=== PATIENT | male | born 1960 | race African-American/Black ===

== ENCOUNTER 2017-12-01 00:54 | Emergency (ER) | payer OTHER, SELFPAY ==
[2017-12-01 00:56] VITALS: BP 131/80; PULSE 110; RESP 14; TEMP 36.7; O2SAT 98; BMI 25.0
--- NOTE | 2017-12-01 02:12 | ED.VISSUMM ---
- ER Visit Summary Date of Service: 12/01/17 Chief Complaint: [Back pain] History of Present Illness: The patient is a 57 M [who presents the emergency department with back pain. It started last evening about 8:00 when he was lifting a water tank. It is across his lower back. It feels like spasm. It is worse with walking and extending as well as bending over. There is no radiation to the buttocks no numbness or tingling no saddle anesthesia no bowel or bladder dysfunction. He has never had problems with his back in the past.] Physical Examination: [] Heart rate 110 other vitals within acceptable limits WN WD NAD PERRL EOMI MMM NECK supple and nontender, no masses RRR no murmur rub or gallop, no peripheral edema, symmetric radial pulses CTAB no respiratory distress ABDOMEN is soft and nontender, normal bowel sounds, no distension, no rebound or guarding Patient has tenderness to palpation in lumbar paraspinal musculature. There is 5 out of 5 EHL dorsiflexion plantar flexion knee extension and hip flexion there is no lower extremity edema. He has brisk distal cap refill there is no sensory or motor deficits SKIN is warm and dry no rashes Alert and Oriented x3, CN II-XII in tact, no motor or sensory deficits, gait normal No lymphadenopathy Test Results: [] Emergency Department Course and Treatment: [Patient will be treated symptomatically. He was given [place] ibuprofen and Flexeril. He will be given prescriptions for the same. He was given precautions for which to return.] Treatment Plan: [] Disposition: [Discharge] Impression: [Acute lumbar back strain] This note was generated with [employer] dictation software. It may contain incorrect words, spelling, and punctuation that were not noted in review of the chart prior to signing ED Disposition - Plan for ED Patient: Chief Complaint: Back [facility] [Primary [facility] Provider] -
--- NOTE | 2017-12-01 02:15 | ED.DCSUM_ITS ---
- ER Visit Summary Date of Service: 12/01/17 Chief Complaint: [Back pain] History of Present Illness: The patient is a 57 M [who presents the emergency department with back pain. It started last evening about 8:00 when he was lifting a water tank. It is across his lower back. It feels like spasm. It is worse with walking and extending as well as bending over. There is no radiation to the buttocks no numbness or tingling no saddle anesthesia no bowel or bladder dysfunction. He has never had problems with his back in the past.] Physical Examination: [] Heart rate 110 other vitals within acceptable limits WN WD NAD PERRL EOMI MMM NECK supple and nontender, no masses RRR no murmur rub or gallop, no peripheral edema, symmetric radial pulses CTAB no respiratory distress ABDOMEN is soft and nontender, normal bowel sounds, no distension, no rebound or guarding Patient has tenderness to palpation in lumbar paraspinal musculature. There is 5 out of 5 EHL dorsiflexion plantar flexion knee extension and hip flexion there is no lower extremity edema. He has brisk distal cap refill there is no sensory or motor deficits SKIN is warm and dry no rashes Alert and Oriented x3, CN II-XII in tact, no motor or sensory deficits, gait normal No lymphadenopathy Test Results: [] Emergency Department Course and Treatment: [Patient will be treated symptomatically. He was given [place] ibuprofen and Flexeril. He will be given prescriptions for the same. He was given precautions for which to return.] Treatment Plan: [] Disposition: [Discharge] Impression: [Acute lumbar back strain] This note was generated with [employer] dictation software. It may contain incorrect words, spelling, and punctuation that were not noted in review of the chart prior to signing ED Disposition - Plan for ED Patient: Chief Complaint: Back [facility] [Primary [facility] Provider] -
--- NOTE | 2017-12-01 02:15 | ED.DEP ---
ED Disposition - Plan for ED Patient: Chief Complaint: Back Instructions: ED Sprain Strain Lumbar Prescriptions: Ibuprofen 800 mg PO Q8H PRN PRN #20 tablet PRN Reason: Pain Cyclobenzaprine [Flexeril] 10 mg PO TID PRN #14 tablet PRN Reason: Muscle Spasm [facility] [Primary [facility]] - 3-5 Days if not improving
[2017-12-01] MEDS: Ibuprofen 400 MG Tablet 800 MG PO (02:19)
[2017-12-01] MEDS: HYDROcodone Bitartrate/Apap 5/325 Tablet PO ×2 (02:20→02:27)
[2017-12-01 02:28] VITALS: BP 126/81; PULSE 79; RESP 14; O2SAT 98
== END 2017-12-01 02:30 | disposition home or self-care (01) ==
LOC: ED 02:07
PROVIDERS: Emergency Provider Emergency Medicine
DX: S39.012A Strain of muscle, fascia and tendon of lower back, initial encounter (principal); X50.0XXA Overexertion from strenuous movement or load, initial encounter; Y93.9 Activity, unspecified; Y92.9 Unspecified place or not applicable; Y99.9 Unspecified external cause status; Z72.0 Tobacco use; Z79.82 Long term (current) use of aspirin; Z79.899 Other long term (current) drug therapy
CPT/HCPCS: 99283

== ENCOUNTER 2021-07-31 22:33 | Emergency (ER) | payer OTHER, SELFPAY ==
[2021-07-31 22:35] VITALS: BP 144/98; PULSE 103; RESP 16; TEMP 37; O2SAT 99; BMI 23.1
--- NOTE | 2021-07-31 22:35 | ED.RN ---
Pt brought in by EMS, EMS staff had patient walk to the ED bed from their cot at the doorway. Pt took a few steps then fell face first to the floor, patient caught himself with his hands. Pt did not hit face or head. Pt denies injury. Pt denies falling a few minutes later.
--- NOTE | 2021-07-31 22:53 | EKG12_ITS ---
Test Reason : CP Blood Pressure : / mmHG Vent. Rate : 094 BPM Atrial Rate : 094 BPM P-R Int : 142 ms QRS Dur : 130 ms QT Int : 388 ms P-R-T Axes : 073 054 035 degrees QTc Int : 485 ms Normal sinus rhythm Right bundle branch block Abnormal ECG Confirmed by SAL ARCOS, KALINA ([id number]), purchase request editor NOÉ LEZAMA ([id number]) on 08/05/2021 11:18:05 AM Referred By: NIKKI Confirmed By:KALINA HUANG MD
--- NOTE | 2021-07-31 22:54 | EDS_ITS ---
HPI History of Present Illness Chief Complaint: Chest Pain Informant: patient Onset/Context/Timing Onset: Month(s) Timing: Intermittent Quality: Positive for Aching Location: Substernal, Right Parasternal, Left Parasternal, Right Chest and Left Chest Current Severity: Mild Maximum Severity: Mild Worsened By: Nothing Relieved By: Nothing Associated Symptoms: Positive for Palpitations; Negative for Nausea, Vomiting, Diaphoresis, Dyspnea, Cough, Fever, Lightheadedness and Acid Reflux Narrative Narrative: 61-year-old male who clinically appears intoxicated. Reportedly has had chest pain for months. Had a recent stress test at the [facility], [facility], but has not gotten his test results yet. Use visit get those tomorrow. Denies that he was having anxiety attack. Started having chest pain. Called the squad and did not want to come in. Prior Similar Symptoms: Yes Recent Illness/Hospitalization: No CVD Risk Factors: Positive for Smoking; Negative for Diabetes PE Risk Factors: Negative for Recent Travel/Surgery, Recent Immobilization, Prior DVT or PE and Cancer TAD Risk Factors: Positive for Marfan's Syndrome; Negative for Hypertension [facility] Medical History Angina at rest Anxiety Back pain Chest pain Depression Hearing loss, left History of intestinal obstruction (~1967) Hypothyroidism Migraine headache Myocardial infarct Palpitations Shortness of breath on exertion Smoker Wears glasses Home Medications aspirin 81 mg PO DAILY 12/01/17 [History Last Taken Unknown] ibuprofen 800 mg PO Q8H PRN PRN #20 tablet 12/01/17 [Rx Last Taken Unknown] levothyroxine 100 mcg PO DAILY 12/01/17 [History Last Taken Unknown] Allergy/AdvReac Type Severity Reaction Status Date / Time No Known Allergies Allergy Verified 07/31/21 23:43 Family History Father No problems noted. Surgical History History of abdominal surgery Hx of resection of small bowel (~1967) Social History Smoking Status: Current every day smoker tobacco type: cigarettes ROS ROS ED ROS Narrative Chest pain. Review of Systems ROS Unobtainable: Denies due to encephalopathy Constitutional Constitutional ED: Denies fever(s) Eyes Eyes: Denies none or change in vision ENT ENT ED: Denies ear pain Cardiovascular Cardiovascular: Reports as per HPI and chest pain; Denies palpitations or racing heartbeat Respiratory/Chest Respiratory/Chest: Denies cough or dyspnea Gastrointestinal Gastrointestinal: Denies abdominal pain, constipation, diarrhea, nausea or vomiting Genitourinary Genitourinary ED: Denies dysuria or hematuria Musculoskeletal Musculoskeletal: Denies myalgias Integumentary Denies rash Neurologic Neurologic: Denies headache(s) Psychiatric Psychiatric: Denies depression Endocrine Endocrinology: Denies polyuria Hematologic/Lymphatic Hematologic/Lymphatic: Denies easy bruising Allergic/Immunologic Allergic/Immunologic ED: Denies urticaria EXAM Physical Exam Narrative Exam Narrative: 61-year-old male no acute distress. He is anxious. At times is tearful. At times he is uncooperative. Vital signs are stable. He is afebrile. His pulse ox is 99% on room air no hypoxia. H EENT exam unremarkable. Neck nontender. No JVD. Lungs clear to auscultation bilaterally. Heart regular rhythm rate about 103. No murmur. Chest wall nontender. Abdomen soft nontender normal bowel sounds no peritoneal signs. Patient moving all 4 extremities. Equal symmetrical radial pulses. 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 Dorsi plantarflexion intact. Calves are nontender without edema or cords. Neurologically is awake. He is alert. He does seem intoxicated. He is moving all 4 extremities. He gets up out of bed and can walk. Const Vital Signs: 07/31/21 22:35 07/31/21 23:42 08/01/21 00:13 Temperature 98.6 F Temperature Source Temporal Pulse Rate 103 H 97 75 Respiratory Rate 16 16 16 Blood Pressure 144/98 H 87/64 L Blood Pressure Mean 113 71 Pulse Ox 99 98 98 Oxygen Delivery Method Room Air Room Air Room Air Positive well nourished and well developed; Negative for obese, cachectic, contractures or unkempt General Appearance ED: well developed and NAD; Negative for unkempt, cachectic, contractures or pallor Nutritional Appearance: Negative for cachectic or obese HEENT Reports moist mucous membranes normocephalic and atraumatic; Negative for trauma or tenderness Eyes PERRL and EOMs intact bilaterally Neck no lymphadenopathy, supple and no JVD General: Negative for tenderness Chest Wall inspection of chest normal and palpation of chest normal Chest: Negative for tenderness Resp normal respiratory effort and clear to auscultation bilaterally Effort and Inspection: respiratory distress Auscultation: Negative for rales, rhonchi or wheezes Cardio regular rate, regular rhythm, S1 normal heart sound, S2 normal heart sound and no murmurs Rate: Negative for bradycardia or tachycardic GI normal to inspection, nondistended, normoactive bowel sounds, soft to palpation, non-tender, non-distended and no masses; Negative for hepatosplenomegaly Auscultation: Negative for hyperactive bowel sounds Palpation: Negative for splenomegaly Back/Spine no CVA tenderness and no thoracic nor lumbar tenderness General Back: Negative for CVA tenderness Cervical Spine: Negative for cervical spine tenderness Extremity normal to inspection General Extremety ED: Negative for edema or tenderness General Extremity: Negative for edema Neuro Sensorium / Orientation: awake, alert, oriented to person, oriented to place and oriented to time Motor Exam: strength 5/5 throughout Psych mental status grossly normal Appearance: Negative for unkempt Attitude: No agitated Mood & Affect: depressed, anxious and tearful Skin no rashes or lesions noted and no wounds General Skin Exam: Negative for jaundice or pallor Heart Score History: Slightly/Non-Suspicious ECG: Normal Age: >45 - <65 years Risk Factors: 1 or 2 Risk Factors Troponin: </= Normal Limit Score: 2 MDM MDM MDM Narrative Medical decision making narrative: 61-year-old male intoxicated. Complaining of chest pain. Exam benign. Undergo cardiac work-up. Of already spoken with his sister via phone. He also be given Ativan to help relax him. Repeat exam patient is doing well at 2 AM. He is resting comfortably. He was given Ativan because he kept trying to leave the emergency department at times he was combative. He will be evaluated overnight. If he is doing well in the morning he will be discharged home. Transiently became hypotensive with a blood pressure 87/64. He was tolerating that well. He was treated with IV fluids for that. Lab Data Attestation: I reviewed the patient's lab results. Lab results narrative: CBC shows a white count of 5. H&H of 15 and 43. Electrolytes show a gap of 7 BUN of 13 creatinine 1.62. Troponin of 6. Lipase of 230. Chest x-ray unremarkable. Alcohol is elevated 204 consistent with his acute intoxication. Labs: Laboratory Results - last 24 hr 07/31/21 07/31/21 07/31/21 23:30 23:30 23:30 WBC 5.3 RBC 4.46 L Hgb 15.5 Hct 43.5 MCV 97.5 H MCH 34.8 H MCHC 35.6 RDW Std Deviation 50.4 H RDW Coeff of Son 13.8 Plt Count 294 MPV 9.0 Immature Gran % (Auto) 0.400 Neut % (Auto) 28.8 L Lymph % (Auto) 34.0 [place] % (Auto) 5.9 Eos % (Auto) 29.8 H Baso % (Auto) 1.1 H Absolute Neuts (auto) 1.5 L Absolute Lymphs (auto) 1.79 Nucleated RBC % 0 Sodium 142 Potassium 3.5 Chloride 111 H Carbon Dioxide 24.0 Anion Gap 7 BUN 13 Creatinine 1.62 H Estim Creat Clear Calc 46.33 Est GFR (MDRD) Af Amer 56 L Est GFR (MDRD) Non-Af 46 L BUN/Creatinine Ratio 8.0 L Glucose 76 Calcium 9.0 Troponin I High Sens 6 Lipase 230 Ethyl Alcohol 204.0 Radiography Chest X-Ray - ED: 1 View, Read by ED Physician, Read by Radiologist, Heart, Lungs, Mediastinum, Bony Structures, No Acute Disease and Chronic Changes Diagnostic Testing: Clinical Impression(s) from Imaging Studies Chest X-Ray 07/31/21 23:57 IMPRESSION: Negative x-ray examination of the chest. Electronically Signed: Adria Jovel MD at 0:09 EST , Single view, portable, chest x-ray interpreted myself radiologist shows no acute abnormality. Rhythm Strip Rhythm Strip: Sinus Rhythm Rate: 94 Ectopy: None EKG Initial EKG: Attestation: I personally reviewed and interpreted this EKG as follows: Interpretation: Sinus Rhythm and No Acute Injury Pattern Comments: Normal sinus rhythm rate of 94 no acute signs of [place] nor ischemia. Right bundle branch block. Prior EKG tracings: not available for review Discharge Plan Triage Chief Complaint: Chest Pain ED Provider: Bradford Beltran Dx/Rx/DC Orders Clinical Impression: Chest pain, Anxiety, Alcohol intoxication Instructions: ED Anxiety Reaction, ED Chest Pain, Uncertain Cause, ED Alcohol Intoxication Prescriptions: No Action levothyroxine 100 MCG tablet 100 mcg PO DAILY RF: 0 aspirin 81 MG tablet,chewable 81 mg PO DAILY RF: 0 ibuprofen 800 MG tablet 800 mg PO Q8H PRN PRN (Reason: Pain) Qty: 20 RF: 0 [facility] [facility] [Primary Care [place]] - As soon as possible Activity Restrictions/Additional Instructions: Your lab test tonight were unremarkable. Except for your alcohol level was 204 which is about 2-1/2 times the legal limit. Your cardiac work-up was good. No signs of a heart attack. Call and follow-up with the [place]. Return to the emergency department if you are feeling worse. Continue your current medications. Disposition Disposition: Home, Self Care
[2021-07-31] MEDS: LORazepam 2 MG/ML Syringe 1 MG IV (23:35)
--- NOTE | 2021-07-31 23:35 | ED.RN ---
Addendum entered by Alia Stanton 07/31/21 23:43: ADDENDUM: 1MG OUT OF 2 MG SYRINGE GIVEN. Original Note: THIS RN GAVE 2MG IV ATIVAN AT 2200. MANUAL ENTRY OF PATIENT BARCODE AND MEDICATION NOT SCANNED DUE TO PATIENT BEING AGITATED AND COMBATIVE. VERIFIED PT AND MED WITH LUKAS RENDON
--- NOTE | 2021-07-31 23:39 | ED.RN ---
2330: MULTIPLE ATTEMPTS TO DRAW BLOOD AND OBTAIN LABS PER MD ORDER. PT COMBATIVE, RIPPING EQUIPMENT OFF, ATTEMPTING TO PULL OUT IV ACCESS. PT STATING HE WILL RUN AND FIGHT STAFF IF THEY DO NOT LET HIM LEAVE. ABIDA Tejada RN, [place]IA Knox RN, LUIZA GOOD MD AND THIS RN AT BEDSIDE ATTEMPTING TO DEESCALATE PATIENT
[2021-07-31 23:41] LABS: Absolute Lymphocyte Count 1.79 X10^3/uL (0.83-4.51); Absolute Neutrophil Count 1.5 X10^3/uL (2.0-7.7); Basophil# 0.06 X10^3/uL; Basophil% 1.1 % (0-1); Eosinophil# 1.57 X10^3/uL; Eosinophils% 29.8 % (0-5); Hematocrit 43.5 % (40-54); Hemoglobin 15.5 g/dL (13.0-16.5); Lymphocyte # 1.79 X10^3/ul (0.83-4.51); Mean Corp Hgb Conc 35.6 g/dL (32-36); Mean Corpuscular Hgb 34.8 pg (27.0-32.0); Mean Corpuscular Volume 97.5 fL (80-94); Monocyte# 0.31 X10^3/uL; Monocyte% 5.9 % (0-10); NRBC Flagged by Analyzer 0 % (0-5); Neutrophil # 1.51 X10^3/uL (2.7-7.7); Neutrophil % 28.8 % (47-70); Platelet Count 294 K/mm3 (150-450); RBC Distribution Width CV 13.8 % (11.6-14.6); RBC Distribution Width SD 50.4 fl (35.1-43.9); Red Blood Count 4.46 M/mm3 (4.6-6.2); White Blood Count 5.3 K/mm3 (4.4-11.0)
[2021-07-31 23:42] VITALS: PULSE 97; RESP 16; O2SAT 98
--- NOTE | 2021-07-31 23:57 | RAD_ITS ---
STUDY: X-RAY CHEST REASON FOR EXAM: Male, 61 years old. chest pain TECHNIQUE: AP portable COMPARISON: None. FINDINGS: The lungs are clear and expanded. There is no demonstrated pleural abnormality. Normal size heart. Normal mediastinum and analilia. Normal visualized pulmonary arteries. Normal visualized aortic arch and descending thoracic aorta. Normal visualized thoracic spine. Normal visualized ribs, clavicles, and shoulders. There is no demonstrated abnormality of the visualized soft tissue structures of the upper abdomen. RAD/Chest 1 View (Portable) IMPRESSION: Negative x-ray examination of the chest. Electronically Signed: Adria Jovel MD at 0:09 EST ,
[2021-08-01] LABS: Anion Gap 7 (5-15); BUN 13 mg/dL (7-18); Chloride 111 mmol/L (98-107); Creatinine, Serum 1.62 mg/dL (0.70-1.30); EST Glomerular Filtration Rate 46 mL/min (>60); Est Glom Filt Rate - Afr Amer 56 mL/min (>60); Estimated Creatinine Clearance 46.33 ml/min; Glucose 76 mg/dL (74-106); Lipase 230 U/L (73-393); Potassium 3.5 mmol/L (3.5-5.1); Sodium Level 142 mmol/L (136-145); Troponin-I HS 6 pg/mL (3.0-78.0)
[2021-08-01 00:13] VITALS: BP 87/64; PULSE 75; RESP 16; O2SAT 98
--- NOTE | 2021-08-01 00:54 | ED.RN ---
PT STILL ATTEMPTING TO GET OUT OF BED WITH SECURITY ATBEDSIDE. SALEEM Tejada RN AND THIS RN AT BEDSIDE TO REDIRECT PT TO BED. PT GIVEN WARM BLANKET AND EDUCATED PT ON SAFETY TO STAY IN BED. 2ND TROP ORDER CANCELED VORB PER LUIZA GOOD MD.
[2021-08-01 04:35] VITALS: RESP 14
[2021-08-01 06:34] VITALS: PULSE 82; RESP 16; O2SAT 96
== END 2021-08-01 06:36 | disposition home or self-care (01) ==
PROVIDERS: Emergency Provider Emergency Medicine; Visit Provider Emergency Medicine
DX: R07.9 Chest pain, unspecified (principal); F10.929 Alcohol use, unspecified with intoxication, unspecified; Y90.7 Blood alcohol level of 200-239 mg/100 ml; R00.2 Palpitations; Q87.40 Marfan syndrome, unspecified; F17.210 Nicotine dependence, cigarettes, uncomplicated; H91.92 Unspecified hearing loss, left ear; I25.2 Old myocardial infarction; E03.9 Hypothyroidism, unspecified; Z79.82 Long term (current) use of aspirin; Z79.890 Hormone replacement therapy; I95.9 Hypotension, unspecified
CPT/HCPCS: 71045; 80048; 82077; 83690; 84484; 85025; 93005; 96374; 99285; J7030; A4216

== ENCOUNTER 2022-07-31 12:33 | Inpatient (IN) | payer OTHER, SELFPAY ==
[2022-07-31 12:34] VITALS: BP 125/84; PULSE 130; RESP 18; TEMP 36.5; O2SAT 98
[2022-07-31 13:27] VITALS: BMI 23.1
--- NOTE | 2022-07-31 13:29 | CT_ITS ---
INDICATION: Suspect partial small bowel obstruction. Prior history requiring surgery. EXAMINATION: CT ABDOMEN AND PELVIS WITH CONTRAST - CT Abdomen And Pelvis W/ Contrast Injection TECHNIQUE: Helically acquired images were obtained of the abdomen and pelvis following IV contrast. A radiation dose optimization technique was used for this scan. IV Contrast dosage and agent: 100 mL of Isovue-300 Oral contrast: None. COMPARISON: None. FINDINGS: LOWER CHEST: Lung bases are clear. No cardiomegaly or pericardial effusion. LIVER: There is a tiny hypodensity in segment 4A (image 25, series 2 which may represent a cyst. There is a triangular low attenuation in the dome of segment 2. Again cyst versus a possible hemangioma.. This is too small to characterize. The liver is otherwise unremarkable. GALLBLADDER AND BILIARY TREE: No calcified gallstones. No gallbladder distension or wall edema. No intra- or extrahepatic biliary ductal dilation. PANCREAS: No focal cystic or solid mass. SPLEEN: Normal size without focal cystic or solid mass. ADRENAL GLANDS: No nodules. KIDNEYS AND URETERS: No rotation of an otherwise normal right kidney. Normal left kidney. Normal visualized ureters. PERITONEUM: No ascites or free air. No other fluid collection. BOWEL: Normal stomach. Dilated fluid-filled proximal small bowel loops. This can be followed in the right lower quadrant. Impression 1 small bowel loop between other dilated bowel loops best seen on images 6D of series 2. The bowel distal to this level appear normal in diameter. Normal colon. Normal appendix. LYMPH NODES: No enlarged mesenteric or retroperitoneal lymph nodes. VESSELS: Normal abdominal aorta. Normal IVC. URINARY BLADDER: Thick walled poorly distended urinary bladder. REPRODUCTIVE ORGANS: Enlarged prostate. ABDOMINAL WALL: No discrete abdominal or pelvic wall hernia. BONES: Degenerative changes of the lumbar spine was straightened lordosis. CT/Abdomen/Pelvis W IV Cont ONLY IMPRESSION: 1. Proximal small bowel occlusion at the level of the left mid abdomen. This is thought to be a partial functional small bowel obstruction secondary to compressed bowel, however, adhesion cannot be entirely ruled out. 2. Hypodensities in the liver. Cysts versus hemangiomas. 3. Enlarged prostate with questionable bladder outlet syndrome. Electronically Signed: DO Chu Frost3/02/23 at 16:16 EST Reading Location ID and State: [address] [place] [address] Tel [phone], Service support ,
[2022-07-31] MEDS: Morphine 4 MG/ML Syringe IV ×4 (14:15→22:19)
[2022-07-31] MEDS: 0.9% Normal Saline 1,000 ML 1000 ML IV (14:16)
[2022-07-31] MEDS: Ondansetron 4 MG/2 ML Vial IV (14:16)
--- NOTE | 2022-07-31 14:48 | ED.RN ---
multiple attempts for blood no success. lab to come up and draw
--- NOTE | 2022-07-31 15:00 | EX.ED.DYSGE1 ---
HPI History of Present Illness Chief Complaint: General Illness Detail of Chief Complaint: Abdominal pain, distention, constipation and no flatus Informant: patient Onset/Context/Timing Onset: Days (Last bowel movement Thursday) Context: Sudden Onset Timing: Continuous Quality: Waxing waning crampy Location: Generalized abdominal Current Severity: Moderate Maximum Severity: Severe Worsened by: Eating or drinking anything Relieved by: Nothing Associated Symptoms Associated Symptoms: Nausea, constipation Narrative Narrative: Patient is a 62-year-old male who had a abdominal mass removed as a child. He does not know what the abdominal mass was. He does give history of prior small bowel obstruction requiring surgery since it did not clear with NG placement. Patient presents because of lack of bowel movement since Thursday. He has not passed gas in the last 24 hours. He feels bloated and distended with crampy abdominal pain. He is able to drink but not eat anything. He states if he attempts to eat anything his nausea gets worse and his abdomen feels more distended. He denies fever, chills night sweats. Denies weight gain or weight loss. He denies headache, visual, ocular auditory symptoms. He denies cardiac or respiratory symptoms. He denies urologic symptoms other than decreased urine output. Prior similar symptoms: Yes Recent Illness/Hospitalization: No [facility] Medical History Angina at rest Anxiety Back pain Chest pain Depression Hearing loss, left History of intestinal obstruction (~1967) Hypothyroidism Migraine headache Myocardial infarct Palpitations Shortness of breath on exertion Smoker Wears glasses Home Medications aspirin 81 mg chewable tablet 81 mg PO DAILY 12/01/17 [History Last Taken Unknown] ibuprofen 800 mg tablet 800 mg PO Q8H PRN PRN Pain #20 tabs 12/01/17 [Rx Last Taken Unknown] levothyroxine 100 mcg tablet 100 mcg PO DAILY 12/01/17 [History Last Taken Unknown] tamsulosin 0.4 mg capsule (Flomax) 0.4 mg PO DAILY 07/31/22 [History Last Taken Unknown] Allergy/AdvReac Type Severity Reaction Status Date / Time No Known Allergies Allergy Verified 07/31/21 23:43 Family History Father No problems noted. Surgical History History of abdominal surgery Hx of resection of small bowel (~1968) Social History household members: none Smoking Status: Current every day smoker tobacco type: cigarettes substance use type: does not use ROS ROS ED Constitutional Constitutional ED: Denies chills, fever(s), subjective, sweats or weight loss Eyes Eyes: Denies blurry vision, change in vision or diplopia ENT ENT ED: Denies ear pain, rhinorrhea or sore throat Cardiovascular Cardiovascular: Denies chest pain, orthopnea, palpitations, paroxysmal nocturnal dyspnea or racing heartbeat Respiratory/Chest Respiratory/Chest: Denies cough, dyspnea, dyspnea on exertion, orthopnea or paroxysmal nocturnal dyspnea Gastrointestinal Gastrointestinal: Reports abdominal pain, constipation and nausea; Denies diarrhea, melena or vomiting Genitourinary Genitourinary ED: Denies dysuria, hematuria or urinary frequency Musculoskeletal Musculoskeletal: Denies arthralgias, back pain, myalgias or neck pain Integumentary Denies abscess, Abrasions or rash Neurologic Neurologic: Reports weakness; Denies paresthesias Endocrine Endocrinology: Denies cold intolerance or heat intolerance Hematologic/Lymphatic Hematologic/Lymphatic: Reports systems reviewed and no addt'l complaints, except as documented EXAM Physical Exam Const Vital Signs: 07/31/22 12:34 07/31/22 13:27 07/31/22 15:33 Temperature 97.7 F L Temperature Source Temporal Pulse Rate 130 H 87 Respiratory Rate 18 16 Respiratory Effort Normal Respiratory Pattern Normal Blood Pressure 125/84 H 126/87 H Blood Pressure Mean 97 100 Pulse Ox 98 97 Oxygen Delivery Method Room Air Room Air Positive well nourished and well developed Constitutional Narrative: Patient is a thin gentleman who appears uncomfortable. He does not appear toxic. General Appearance ED: well developed; Negative for cyanotic, diaphoretic, NAD or pallor HEENT Reports dry mucous membranes HEENT Narrative: Head is atraumatic and normocephalic. Ears are normal. Nares are patent without discharge. Posterior pharynx is normal. Mouth ED: Yes dry mucous membranes Mouth: dry mucous membranes Eyes PERRL and EOMs intact bilaterally General Eye ED: Negative for pale conjunctiva or scleral icterus Neck no lymphadenopathy, supple and no JVD Chest Wall inspection of chest normal and palpation of chest normal Resp normal respiratory effort and clear to auscultation bilaterally Cardio regular rhythm, S1 normal heart sound, S2 normal heart sound and no murmurs Rate: tachycardic GI no masses; Negative for non-tender, non-distended or hepatosplenomegaly Inspection: abdominal distention Auscultation: hypoactive bowel sounds Palpation: soft and guarding; Negative for tender, splenomegaly, mass or rebound tenderness present Back/Spine no CVA tenderness Thoracic Spine / Upper Back: Negative for thoracic spinal tenderness Lumbar Spine / Lower Back: Negative for lumbar spinal tenderness Extremity normal to inspection General Extremety ED: Negative for edema or tenderness General Extremity: Negative for edema Neuro oriented x3, CN's II-XII intact bilaterally and no sensory deficits noted Psych mental status grossly normal Skin no rashes or lesions noted and no wounds General Skin Exam: Negative for jaundice or pallor MDM MDM MDM Narrative Medical decision making narrative: With history of tumor as a child requiring surgery and small bowel resection due to prior obstruction concern patient has a partial or complete small bowel obstruction and will obtain CT of the abdomen pelvis as well as blood work. There are no recent records for review. Patient is tachycardic. This would coincide with him being dehydrated. He did receive 1 L of normal saline wide open. He was medicated with Zofran for his nausea and morphine for his pain. Per prior records at [facility] he has history of hypothyroidism and BPH. Case was discussed with surgeon on-call, Dr. Wolf zuniga. She agrees with plan of NG and admission to hospitalist service. She will see patient in consultation and if this does not clear will discuss options with patient i.e. surgery Lab Data Attestation: I reviewed the patient's lab results. Lab results narrative: White count is remarkable for macrocytosis. Comprehensive metabolic panel reveals slight elevation in glucose of 121 Labs: Laboratory Results - last 24 hr 07/31/22 07/31/22 15:08 15:08 WBC 5.5 RBC 4.68 Hgb 15.6 Hct 47.0 MCV 100.4 H MCH 33.3 H MCHC 33.2 RDW Std Deviation 54.4 H RDW Coeff of Son 14.6 Plt Count 230 MPV 9.5 Immature Gran % (Auto) 0.400 Neut % (Auto) 79.4 H Lymph % (Auto) 8.9 L Dawson % (Auto) 9.8 Eos % (Auto) 1.3 Baso % (Auto) 0.2 Absolute Neuts (auto) 4.4 Absolute Lymphs (auto) 0.49 L Nucleated RBC % 0 Differential Comment SCANNED Sodium 138 Potassium 3.9 Chloride 105 Carbon Dioxide 27.0 Anion Gap 6 BUN 11 Creatinine 1.24 Estim Creat Clear Calc 59.76 Est GFR (MDRD) Af Amer 76 Est GFR (MDRD) Non-Af 63 BUN/Creatinine Ratio 8.9 L Glucose 121 H Calcium 9.8 Total Bilirubin 0.60 AST 15 ALT 17 Alkaline Phosphatase 56 Total Protein 7.5 Albumin 3.5 Globulin 4.0 Albumin/Globulin Ratio 0.9 Radiography Diagnostic Testing: Clinical Impression(s) from Imaging Studies Abdomen/Pelvis CT 07/31/22 13:29 IMPRESSION: 1. Proximal small bowel occlusion at the level of the left mid abdomen. This is thought to be a partial functional small bowel obstruction secondary to compressed bowel, however, adhesion cannot be entirely ruled out. 2. Hypodensities in the liver. Cysts versus hemangiomas. 3. Enlarged prostate with questionable bladder outlet syndrome. Electronically Signed: Thanh Chavarria DO at 16:16 EST Reading Location ID and State: [address] [place] [address] Tel [phone], Service support , Can scan reveals what appears to be a partial small bowel obstruction. Awaiting formal read by radiologist. Since radiologist interpretation is for a proximal small bowel occlusion at the level of the left mid abdomen and thought to be partial and NG was placed to low intermittent suction. Hospitalist and surgeon were paged. Surgeon was contacted since he has prior history of obstruction requiring small bowel obstruction resection. KUB to assess NG placement was independently reviewed interpreted by me as under markable. The NG is in proper position. This was performed at 1713. Rhythm Strip Rhythm Strip: Sinus Tach Rate: 120 Ectopy: None Treatment and Re-Evaluation Narrative: Patient required additional dose of morphine. He did receive a liter of saline. His heart rate improved with saline. Discharge Plan Dx/Rx/DC Orders Clinical Impression: Partial obstruction of small intestine, Acute dehydration, Sinus tachycardia Disposition Disposition: Acute Care Hospital [facility]
[2022-07-31 15:19] LABS: Absolute Lymphocyte Count 0.49 X10^3/uL (0.83-4.51); Absolute Neutrophil Count 4.4 X10^3/uL (2.0-7.7); Basophil# 0.01 X10^3/uL; Basophil% 0.2 % (0-1); Eosinophil# 0.07 X10^3/uL; Eosinophils% 1.3 % (0-5); Hemoglobin 15.6 g/dL (13.0-16.5); Lymphocyte # 0.49 X10^3/ul (0.83-4.51); Lymphocyte % 8.9 % (19-41); Mean Corp Hgb Conc 33.2 g/dL (32-36); Mean Corpuscular Hgb 33.3 pg (27.0-32.0); Mean Corpuscular Volume 100.4 fL (80-94); Mean Platelet Vol. 9.5 fl (6.2-12.0); Monocyte# 0.54 X10^3/uL; Monocyte% 9.8 % (0-10); NRBC Flagged by Analyzer 0 % (0-5); Neutrophil # 4.38 X10^3/uL (2.7-7.7); Neutrophil % 79.4 % (47-70); POSITIVE DIFFERENTIAL YES; Platelet Count 230 K/mm3 (150-450); RBC Distribution Width CV 14.6 % (11.6-14.6); RBC Distribution Width SD 54.4 fl (35.1-43.9); Red Blood Count 4.68 M/mm3 (4.6-6.2); White Blood Count 5.5 K/mm3 (4.4-11.0)
[2022-07-31 15:33] VITALS: BP 126/87; PULSE 87; RESP 16; O2SAT 97
[2022-07-31 15:42] LABS: ALB/GLOB Ratio 0.9 RATIO (0.9-2.4); AST(SGOT) 15 U/L (15-37); Alanine Aminotransfer ALT/SGPT 17 U/L (16-61); Albumin, Serum 3.5 g/dL (3.2-5.0); Alkaline Phosphatase 56 U/L (45-117); Anion Gap 6 (5-15); BUN 11 mg/dL (7-18); BUN/Creat Ratio 8.9 RATIO (10-20); Calcium,Total 9.8 mg/dL (8.5-10.1); Chloride 105 mmol/L (98-107); Creatinine, Serum 1.24 mg/dL (0.70-1.30); EST Glomerular Filtration Rate 63 mL/min (>60); Est Glom Filt Rate - Afr Amer 76 mL/min (>60); Estimated Creatinine Clearance 59.76 ml/min; Glucose 121 mg/dL (74-106); Potassium 3.9 mmol/L (3.5-5.1); Protein, Total 7.5 g/dL (6.4-8.2); Sodium Level 138 mmol/L (136-145)
[2022-07-31 15:51] LABS: Differential Indicated SCAN CRITERIA MET
[2022-07-31 16:24] LABS: Differential Comment SCANNED
--- NOTE | 2022-07-31 16:47 | HP.PCM.HOS_ITS ---
HPI - General General Date of Admission: 07/31/22 Date of Service: 07/31/22 Chief Complaint: Abdominal pain, not passing flatus and BM, vomiting started on Thursday night. HPI Narrative CAITLIN LUTZ, is a 62 M was brought to ED by EMS for not able to keep food down, vomiting, not passing flatus and bowel movement since 07/28/2022. Thelma schmitz has history of bowel obstruction and laparotomy for bowel obstruction more than 10 years ago. He also drinks alcohol on weekends, last drink on Thursday. Patient stated at 10:30 PM on that day, he started feeling right upper quadrant pain which moved to right lower quadrant and then generalized and became progressively worse since then. It is colicky in nature, 10/10 intensity without aggravating relieving factor. Had a small bowel movement on that night. He passed small flatus today in the morning. He is also having persistent vomiting since 07/29, mainly gastric content. Denies hematemesis melena or hematochezia. The patient was last seen by surgeon Dr. Cook in September 2020 for a screening colonoscopy but he did not had a colonoscopy and has not followed surgeon after that. Denies any fever or chills. In ED, CT abdomen pelvis shows proximal small bowel occlusion at level of left midabdomen, most likely partial and functional small bowel obstruction. However adhesions cannot be entirely ruled out. Enlarged prostate with questionable GÓMEZ. Surgeon was consulted and said she will consult, to be admitted to hospitalist service Patient has NG tube inserted in ED and further admitted. KUB x-rays reviewed and shows upper port at level of diaphragm therefore needs advancement about at least 2 cm. Discussed with the nursing staff in ED. [facility] Medical History Angina at rest Anxiety Back pain Chest pain Depression Hearing loss, left History of intestinal obstruction (~1967) Hypothyroidism Migraine headache Myocardial infarct Palpitations Shortness of breath on exertion Smoker Wears glasses Home Medications aspirin 81 mg chewable tablet 81 mg PO DAILY 12/01/17 [History Last Taken Unknown] ibuprofen 800 mg tablet 800 mg PO Q8H PRN PRN Pain #20 tabs 12/01/17 [Rx Last Taken Unknown] levothyroxine 100 mcg tablet 100 mcg PO DAILY 12/01/17 [History Last Taken Unknown] tamsulosin 0.4 mg capsule (Flomax) 0.4 mg PO DAILY 07/31/22 [History Last Taken Unknown] Allergy/AdvReac Type Severity Reaction Status Date / Time No Known Allergies Allergy Verified 07/31/21 23:43 Family History Father No problems noted. Surgical History History of abdominal surgery Hx of resection of small bowel (~1968) Social History household members: none Smoking Status: Current every day smoker tobacco type: cigarettes substance use type: does not use ROS ROS Narrative Constitutional: Reports fatigue and weakness. No fever HEENT: Reports systems reviewed and no addt'l complaints, except as documented Respiratory/Chest: Denies chest pain, shortness of breath at rest or with exertion Gastrointestinal: As mentioned in HPI Genitourinary: Denies burning urination or new urinary tract symptoms Musculoskeletal: Denies joint pain and limited range of motion Neurologic: Denies seizure-like activity. No strokelike symptoms skin: No ulcer. No rash Endocrinology: Reports systems reviewed and no addt'l complaints, except as documented Hematologic/Lymphatic: Reports systems reviewed and no addt'l complaints, except as documented Psychiatry: History of substance use, crack cocaine in the past. Still smokes and drink alcohol. Rest 14 ROS are negative except as mentioned in HPI Vital Signs Vital Signs Vital Signs: 07/31/22 12:34 07/31/22 13:27 07/31/22 15:33 Temperature 97.7 F L Temperature Source Temporal Pulse Rate 130 H 87 Respiratory Rate 18 16 Respiratory Effort Normal Respiratory Pattern Normal Blood Pressure 125/84 H 126/87 H Blood Pressure Mean 97 100 Pulse Ox 98 97 Oxygen Delivery Method Room Air Room Air Weight Weight: 152 lb 4.8 oz Body Mass Index (BMI) 23.1 Physical Exam Narrative Physical exam General: Alert, Oriented x3, Cooperative HEENT: NG tube. Atraumatic, PERRLA, EOMI, Normocephalic Oral: Oral mucosa dry. No Gingival or Mucosal Lesions/ Ulcerations Neck: Supple, No JVD, Negative Carotid Bruits Lungs: Air entry diminished in bilateral lung bases. No crepitation/rhonchi Cardiovascular: Regular rate, Regular Rhythm, Normal S1, Normal S2, No murmurs Abdomen: Soft, no guarding/rigidity. Bowel sounds hyperactive. Diffuse tenderness and mild distention in all quadrants. Old midline surgical scar : Dark color urine. No renal angle tenderness. No suprapubic tenderness. Extremities: No edema, Capillary Refill Less than 3 Seconds Skin: No rashes, No breakdown Musculoskeletal: No Tenderness to Palpation of Joints or Extremities. ROM full and adequate. Neurological: Cranial nerves II-XII grossly intact, DTR 2+/4 and Symmetrical, Neuro grossly intact Psych/Mental Status: Flat affect. In pain. Results Lab / Micro Data Result Diagrams: 07/31/22 15:08 07/31/22 15:08 Labs: Laboratory Results - last 24 hr 07/31/22 15:08: WBC 5.5, RBC 4.68, Hgb 15.6, Hct 47.0, MCV 100.4 H, MCH 33.3 H, MCHC 33.2, RDW Std Deviation 54.4 H, RDW Coeff of Son 14.6, Plt Count 230, MPV 9.5, Immature Gran % (Auto) 0.400, Neut % (Auto) 79.4 H, Lymph % (Auto) 8.9 L, [place] % (Auto) 9.8, Eos % (Auto) 1.3, Baso % (Auto) 0.2, Absolute Neuts (auto) 4.4, Absolute Lymphs (auto) 0.49 L, Nucleated RBC % 0, Differential Comment SCANNED 07/31/22 15:08: Sodium 138, Potassium 3.9, Chloride 105, Carbon Dioxide 27.0, Anion Gap 6, BUN 11, Creatinine 1.24, Estim Creat Clear Calc 59.76, Est GFR (MDRD) Af Amer 76, Est GFR (MDRD) Non-Af 63, BUN/Creatinine Ratio 8.9 L, Glucose 121 H, Calcium 9.8, Total Bilirubin 0.60, AST 15, ALT 17, Alkaline Phosphatase 56, Total Protein 7.5, Albumin 3.5, Globulin 4.0, Albumin/Globulin Ratio 0.9 Rhythm Strip Rhythm Strip: Sinus Tach Rate: 120 Ectopy: None Radiology Impression Abdomen/Pelvis CT 07/31/22 13:29 IMPRESSION: 1. Proximal small bowel occlusion at the level of the left mid abdomen. This is thought to be a partial functional small bowel obstruction secondary to compressed bowel, however, adhesion cannot be entirely ruled out. 2. Hypodensities in the liver. Cysts versus hemangiomas. 3. Enlarged prostate with questionable bladder outlet syndrome. Electronically Signed: Thanh Chavarria DO at 16:16 EST Reading Location ID and State: [address] [place] [address] Tel [phone], Service support , Assessment & Plan Assessment/Plan (1) Partial obstruction of small intestine: PLAN: Plan 1. Partial small bowel obstruction: Patient is being admitted on [facility] floor. CT abdomen individually reviewed and shows possible proximal small bowel obstruction at left upper quadrant. Dilated small bowel loops with fluid and air. Radiologist reported partial and functional SBO. General surgery Dr. Mays is consulted from ED. NG tube inserted and KUB shows port at diaphragm level therefore advised to push 2 to 3 cm distally. NG tube wall suction , Medium continuous until suction is dry afterwards intermittent medium. IV fluid Ringer lactate. Monitor clinically. 2. History of small bowel obstruction status post laparotomy more than 10 years ago: Patient did not had follow-up with surgeon Dr. Jarvis In October 2020. 3. Migraine headache: Patient complained of mild headache but its not of migraine quality. Patient on pain medication. 4. Chronic smoker, history of alcohol intoxication chronic alcohol use disorder, anxiety, depression, history of polysubstance use in past: Patient quit crack cocaine in the past. Still smokes 1 pack lasting 1 week. Drinks wine on weekends and sometimes. Was a heavy drinker before. Advised quitting of alcohol and smoking. Denies history of chronic hepatitis or HIV. Noncompliance and nonadherence is the issue. VT prophylaxis moderate risk: Enoxaparin 40 mg subcu daily Living will/advanced directive/end of life care: Patient does not have living will or advanced directive. After discussion of benefits/risks procedures involved with full code, DNR CC arrest and DNR CC, the patient opted for full code. Patient does want artificial life support including intubation, tube feed, ventilator and/chest compression, central venous catheter, vasopressor and DC shock if needed Total time spent in [id number] encounter in discussion of advanced directive 17 minutes. Laboratory Results 07/31/22 15:08: WBC 5.5, RBC 4.68, Hgb 15.6, Hct 47.0, MCV 100.4 H, MCH 33.3 H, MCHC 33.2, RDW Std Deviation 54.4 H, RDW Coeff of Son 14.6, Plt Count 230, MPV 9.5, Immature Gran % (Auto) 0.400, Neut % (Auto) 79.4 H, Lymph % (Auto) 8.9 L, Sweet [place] % (Auto) 9.8, Eos % (Auto) 1.3, Baso % (Auto) 0.2, Absolute Neuts (auto) 4.4, Absolute Lymphs (auto) 0.49 L, Nucleated RBC % 0, Differential Comment SCANNED 07/31/22 15:08: Sodium 138, Potassium 3.9, Chloride 105, Carbon Dioxide 27.0, Anion Gap 6, BUN 11, Creatinine 1.24, Estim Creat Clear Calc 59.76, Est GFR (MDRD) Af Amer 76, Est GFR (MDRD) Non-Af 63, BUN/Creatinine Ratio 8.9 L, Glucose 121 H, Calcium 9.8, Total Bilirubin 0.60, AST 15, ALT 17, Alkaline Phosphatase 56, Total Protein 7.5, Albumin 3.5, Globulin 4.0, Albumin/Globulin Ratio 0.9 07/31/22 15:08: Magnesium 2.1 Clinical Impression(s) from Imaging Studies Abdomen/Pelvis CT 07/31/22 13:29 IMPRESSION: 1. Proximal small bowel occlusion at the level of the left mid abdomen. This is thought to be a partial functional small bowel obstruction secondary to compressed bowel, however, adhesion cannot be entirely ruled out. 2. Hypodensities in the liver. Cysts versus hemangiomas. 3. Enlarged prostate with questionable bladder outlet syndrome. KUB X-Ray 07/31/22 17:06 IMPRESSION: 1. Enteric tube as described. This should be advanced to ensure the upper port lies within the gastric lumen. 2. Dilated small bowel loops in the left upper quadrant. KUB X-Ray 07/31/22 18:08 IMPRESSION: Interval advancement of the NG tube without other major interval change. Electronically Signed: Tahnh Chavarria DO at 18:30 EST Reading Location ID and State: [address] [place] [address] Tel [phone], Service support , Charges/Coding Visit Charges Inpatient E&M: 57455 Init Hosp L3 Procedures Hospitalists Procedures: 41704 Advncd Care Plan 30 Min
[2022-07-31 17:06] VITALS: BP 130/89; PULSE 81; RESP 16; O2SAT 99
--- NOTE | 2022-07-31 17:06 | RAD_ITS ---
STUDY: X-RAY - ABDOMEN/PELVIS REASON FOR EXAM: Male, 62 years old. NG insertion. TECHNIQUE: Single AP view of the lower chest and upper abdomen COMPARISON: CT the abdomen and pelvis, May 30, 2023. FINDINGS: Normal visualized lung bases. There is now an NG tube with its tip over the left upper quadrant. The upper port lies at the level of the diaphragm. This should be advanced 1 to 2 cm. There is air filled small bowel loops in left upper quadrant. There is no demonstrated free abdominal air. The visualized liver, spleen and kidneys are grossly normal in size and morphology. Normal soft tissue structures. Normal visualized osseous structures. RAD/Abdomen Single View (Portable) IMPRESSION: 1. Enteric tube as described. This should be advanced to ensure the upper port lies within the gastric lumen. 2. Dilated small bowel loops in the left upper quadrant. Electronically Signed: Thanh Chavarria DO at 17:24 EST ,
[2022-07-31 17:50] LABS: Magnesium 2.1 mg/dL (1.6-2.6)
--- NOTE | 2022-07-31 18:00 | ED.RN ---
PER DR. BONDS TUBE PLACEMENT NEEDS TO BE ADVANCED 2 CENTIMETERS. PRIMARY RN KIMBERLY TOMPKINS.
--- NOTE | 2022-07-31 18:08 | RAD_ITS ---
STUDY: X-RAY - ABDOMEN/PELVIS REASON FOR EXAM: Male, 62 years old. Tube advancement. TECHNIQUE: AP supine and decubitus views of the abdomen and pelvis. COMPARISON: July 31, 2022 (1705 hours). FINDINGS: Normal visualized lung bases. There is enhancement of the NG tube with its upper port below the level of the diaphragm. Again seen is dilated small bowel loops in the left upper quadrant. There is no demonstrated free abdominal air. The visualized liver, spleen and kidneys are grossly normal in size and morphology. Normal soft tissue structures. Normal visualized osseous structures. RAD/Abdomen Single View IMPRESSION: Interval advancement of the NG tube without other major interval change. Electronically Signed: Thanh Chavarria DO at 18:30 EST ,
--- NOTE | 2022-07-31 18:10 | ED.RN ---
PT GIVES THIS RN PERMISSION TO TALK WITH SISTER TIMI. SISTER INFORMED OF PT ADMISSION.
--- NOTE | 2022-07-31 18:11 | ED.RN ---
advanced ng 2-3cm per dr. santillan. ordered repeat kub
[2022-07-31 18:12] VITALS: BP 138/79; PULSE 87; RESP 16; TEMP 36.4; O2SAT 99
[2022-07-31 19:06] VITALS: BMI 24.4
[2022-07-31] MEDS: Lactated Ringers 1,000 ML 100 ML IV (19:11)
[2022-07-31 19:15] VITALS: BP 146/82; PULSE 86; RESP 18; TEMP 36.6; O2SAT 95
[2022-07-31 23:03] VITALS: PULSE 91
[2022-08-01] VITALS (18 sets, daily range): BP systolic 81–133; BP diastolic 58–79; PULSE 67–112; RESP 14–18; TEMP 36.6–37.6; O2SAT 93–100; BMI 24.4; BMI 24.5
[2022-08-01] MEDS: Morphine 4 MG/ML Syringe IV ×4 (02:24→13:52)
[2022-08-01] MEDS: Lactated Ringers 1,000 ML 100 ML IV (04:45)
--- NOTE | 2022-08-01 05:05 | RAD_ITS ---
STUDY: X-RAY - ABDOMEN/PELVIS REASON FOR EXAM: Male, 62 years old. Small bowel obstruction. TECHNIQUE: Single AP view of the abdomen / pelvis. COMPARISON: July 31, 2019 FINDINGS: Normal visualized lung bases. There is a enteric tube with its tip in the mid stomach. There is a nonspecific bowel gas pattern. Air seen in the colon as well as mildly distended small bowel loops in the abdomen. There is no demonstrated free abdominal air. The visualized liver, spleen and kidneys are grossly normal in size and morphology. Normal soft tissue structures. Normal visualized osseous structures. RAD/Abdomen Single View (Portable) IMPRESSION: Nonspecific bowel gas pattern without evidence of acute obstruction. Electronically Signed: Thanh Chavarria DO at 16:55 EST ,
[2022-08-01 06:00] LABS: Absolute Lymphocyte Count 0.55 X10^3/uL (0.83-4.51); Absolute Neutrophil Count 3.5 X10^3/uL (2.0-7.7); Basophil# 0.02 X10^3/uL; Basophil% 0.4 % (0-1); Eosinophil# 0.23 X10^3/uL; Eosinophils% 4.7 % (0-5); Hematocrit 43.9 % (40-54); Hemoglobin 14.8 g/dL (13.0-16.5); Lymphocyte # 0.55 X10^3/ul (0.83-4.51); Lymphocyte % 11.2 % (19-41); Mean Corp Hgb Conc 33.7 g/dL (32-36); Mean Corpuscular Hgb 34.9 pg (27.0-32.0); Mean Corpuscular Volume 103.5 fL (80-94); Mean Platelet Vol. 10.1 fl (6.2-12.0); Monocyte# 0.58 X10^3/uL; Monocyte% 11.8 % (0-10); NRBC Flagged by Analyzer 0 % (0-5); Neutrophil # 3.51 X10^3/uL (2.7-7.7); Neutrophil % 71.7 % (47-70); POSITIVE DIFFERENTIAL YES; Platelet Count 210 K/mm3 (150-450); RBC Distribution Width CV 15.1 % (11.6-14.6); RBC Distribution Width SD 58.4 fl (35.1-43.9); Red Blood Count 4.24 M/mm3 (4.6-6.2); White Blood Count 4.9 K/mm3 (4.4-11.0)
[2022-08-01 06:12] LABS: Differential Indicated SCAN CRITERIA MET
[2022-08-01 06:20] LABS: Anion Gap 5 (5-15); BUN 13 mg/dL (7-18); Calcium,Total 9.3 mg/dL (8.5-10.1); Chloride 104 mmol/L (98-107); Creatinine, Serum 1.44 mg/dL (0.70-1.30); EST Glomerular Filtration Rate 53 mL/min (>60); Est Glom Filt Rate - Afr Amer 64 mL/min (>60); Estimated Creatinine Clearance 51.46 ml/min; Glucose 88 mg/dL (74-106); Potassium 4.1 mmol/L (3.5-5.1); Sodium Level 138 mmol/L (136-145)
[2022-08-01 06:51] LABS: Differential Comment SCANNED
--- NOTE | 2022-08-01 07:09 | PN.HOSP_ITS ---
Reason for Visit Reason for Visit: Abdominal pain Subjective Subjective Mr. Carr is a 62-year-old -[place] male who presented to the emergency department 2022 secondary to abdominal pain, vomiting, absence of flatus and bowel movement since 07/28/2022. Patient has a history of bowel obstruction with laparotomy for bowel obstruction more than 10 years ago. Patient also admits that he does drink alcohol but only on weekends typically however his last drink was on Thursday. He reported the pain started at 10:30 PM on Thursday and he started having some right upper quadrant pain that moved to his right lower quadrant that became generalized. Pain has been progressively worsening since that point in time and is colicky in nature. There are no aggravating factors or relieving factors. His last bowel movement was on Thursday and he indicates it was small. He is also been suffering from persistent vomiting since 07/29/2022 mainly of gastric contents. He denied any hematemesis, melena, or hematochezia. CT abdomen pelvis shows proximal small bowel occlusion at level of left midabdomen, most likely partial and functional small bowel o bstruction.? However adhesions cannot be entirely ruled out. The case was discussed with general surgery by the emergency department and they said admit to medicine and they would be consulted. An NG was placed in the emergency department and its was advanced based on postplacement imaging 2 cm. Patient was placed on IV fluids, made n.p.o. and general surgery consultation is pending. Patient still with some nausea but vomiting has improved since NG tube placement. No flatus or bowel movement. Small bowel follow-through has been ordered by general surgery and there is concern, per discussion with the patient, that he will need to go to the operating room. Addendum on surgical note reports that at 2 hours Gastrografin had not left the area of the small bowel in the area of the dilation so the plan is for diagnostic laparoscopy, possible laparotomy, possible bowel resection later today. Objective Data Objective Data Vital Signs: Vital Signs Temp Pulse Resp BP Pulse Ox O2 Del Method 98.0 F 67 16 115/76 98 Room Air 08/01/22 05:46 08/01/22 05:46 08/01/22 05:46 08/01/22 05:46 08/01/22 05:46 08/01/22 05:46 Oxygen Delivery Method Room Air Weight: 73.2 kg Body Mass Index (BMI) 24.4 Intake & Output: Intake and Output for Last 24 Hours 07/30/22 07/31/22 08/01/22 23:59 23:59 23:59 Intake Total 1050 / 1050 956.67 / 956.67 Output Total 350 / 350 Balance 1050 / 1050 606.67 / 606.67 Lab / Micro Data Result Diagrams: 08/01/22 04:52 08/01/22 04:52 Labs: Laboratory Results - last 24 hr 07/31/22 15:08: WBC 5.5, RBC 4.68, Hgb 15.6, Hct 47.0, MCV 100.4 H, MCH 33.3 H, MCHC 33.2, RDW Std Deviation 54.4 H, RDW Coeff of Son 14.6, Plt Count 230, MPV 9.5, Immature Gran % (Auto) 0.400, Neut % (Auto) 79.4 H, Lymph % (Auto) 8.9 L, [place] % (Auto) 9.8, Eos % (Auto) 1.3, Baso % (Auto) 0.2, Absolute Neuts (auto) 4.4, Absolute Lymphs (auto) 0.49 L, Nucleated RBC % 0, Differential Comment SCANNED 07/31/22 15:08: Sodium 138, Potassium 3.9, Chloride 105, Carbon Dioxide 27.0, Anion Gap 6, BUN 11, Creatinine 1.24, Estim Creat Clear Calc 59.76, Est GFR (MDRD) Af Amer 76, Est GFR (MDRD) Non-Af 63, BUN/Creatinine Ratio 8.9 L, Glucose 121 H, Calcium 9.8, Total Bilirubin 0.60, AST 15, ALT 17, Alkaline Phosphatase 56, Total Protein 7.5, Albumin 3.5, Globulin 4.0, Albumin/Globulin Ratio 0.9 07/31/22 15:08: Magnesium 2.1 08/01/22 04:52: Sodium 138, Potassium 4.1, Chloride 104, Carbon Dioxide 29.0, Anion Gap 5, BUN 13, Creatinine 1.44 H, Estim Creat Clear Calc 51.46, Est GFR (MDRD) Af Amer 64, Est GFR (MDRD) Non-Af 53 L, BUN/Creatinine Ratio 9.0 L, Glucose 88, Calcium 9.3 08/01/22 04:52: WBC 4.9, RBC 4.24 L, Hgb 14.8, Hct 43.9, MCV 103.5 H, MCH 34.9 H , MCHC 33.7, RDW Std Deviation 58.4 H, RDW Coeff of Son 15.1 H, Plt Count 210, MPV 10.1, Immature Gran % (Auto) 0.200, Neut % (Auto) 71.7 H, Lymph % (Auto) 11.2 L, [place] % (Auto) 11.8 H, Eos % (Auto) 4.7, Baso % (Auto) 0.4, Absolute Neuts (auto) 3.5, Absolute Lymphs (auto) 0.55 L, Nucleated RBC % 0, Differential Comment SCANNED Radiography Diagnostic Testing: Radiology Impression Abdomen/Pelvis CT 07/31/22 13:29 IMPRESSION: 1. Proximal small bowel occlusion at the level of the left mid abdomen. This is thought to be a partial functional small bowel obstruction secondary to compressed bowel, however, adhesion cannot be entirely ruled out. 2. Hypodensities in the liver. Cysts versus hemangiomas. 3. Enlarged prostate with questionable bladder outlet syndrome. Electronically Signed: Thanh Chavarria DO at 16:16 EST Reading Location ID and State: [facility] Tel [phone], Service support , KUB X-Ray 07/31/22 17:06 IMPRESSION: 1. Enteric tube as described. This should be advanced to ensure the upper port lies within the gastric lumen. 2. Dilated small bowel loops in the left upper quadrant. Electronically Signed: Thanh Chavarria DO at 17:24 EST Reading Location ID and State: [facility] Tel [phone], Service support , KUB X-Ray 07/31/22 18:08 IMPRESSION: Interval advancement of the NG tube without other major interval change. Electronically Signed: Thanh Chavarria DO at 18:30 EST Reading Location ID and State: [facility] [employer] Tel [phone], Service support , Rhythm Strip Rhythm Strip: Sinus Tach Rate: 120 Ectopy: None Physical Exam Const alert and oriented x3 Constitutional Narrative: Upper middle-aged, -[place] male, lying in bed, appears ill but nontoxic, nursing at bedside, very pleasant HEENT head/scalp atraumatic and moist oral mucous membranes HEENT Narrative: Dentition is fair, Mallampati is 2, no thrush Head and Scalp: normocephalic Resp normal respiratory effort, no retractions, no use of accessory muscles and clear to auscultation bilaterally Resp Narrative: Diffusely diminished but clear Auscultation: Negative for rales, rhonchi or wheezes Cardio regular rate, regular rhythm, S1 normal heart sound, S2 normal heart sound, no murmurs, no rub, no gallops and no clicks GI GI Narrative: Abdomen is slightly distended, diffuse nonfocal tenderness, hypoactive bowel sounds, soft to palpation Extremity no clubbing, cyanosis or edema Extremity Narrative: 2+ pedal pulses Neuro oriented x3, moves all extremities and no focal motor deficits Speech: speech normal Psych Psych Narrative: Very pleasant, appropriate, affect is somewhat flat Assessment & Plan Assessment/Plan (1) Partial obstruction of small intestine: (2) Acute dehydration: (3) Elevated serum creatinine: PLAN: Plan Partial small bowel obstruction -Continue IV fluids -N.p.o. -As needed pain medication -Antiemetics -No contrast through the area of small bowel with a dilation at 2 hours on small bowel follow-through -Plan is for OR today for diagnostic lap with possible laparotomy, possible small bowel resection -General surgery following-appreciate input Serum creatinine elevation -Serum creatinine 1.62 on admission and 1.44 this morning -Baseline is unclear -Continue IV hydration but increased rate of fluids 250 cc/h -Repeat BMP in a.m. Intractable nausea/vomiting -See above -Continue IV fluids Hypothyroidism -Start levothyroxine IV weekly if patient remains n.p.o. that long -Hold levothyroxine p.o. -TSH found to be markedly elevated at 53.5 -Check free T4 -Checking for home compliance with oral Synthroid--> suspect he has not been compliant for a few days with his above symptoms however his TSH should not be this high if he has been compliant and if he has been compliant he needs an increased dose -Start IV Synthroid -This could potentially have complicated his bowel obstruction BPH -Restart Flomax once able to take p.o. -Consider Myrick if urinary retention History of migraine headaches -Patient complained of mild headache on admission but not migraine quality -As needed pain medication available Alcohol abuse -Typically only drinks on weekends. -Has been heavy drinker previously -No signs of withdrawal -Monitor closely History of crack cocaine abuse -Remote Tobacco abuse -Patient still smokes about 1 pack a week -Recommend cessation -Nicotine patch if needed DVT prophylaxis -Enoxaparin 40 mg subcu daily CODE STATUS -Full code -We will place order Charges/Coding Visit Charges Inpatient E&M: 86793 Subs Hosp L2
--- NOTE | 2022-08-01 07:41 | CON.PCM.SX_ITS ---
Assessment & Plan Assessment/Plan (1) Partial obstruction of small intestine: PLAN: Plan We will plan to check a small bowel follow-through. Keep patient n.p.o./NG/IV fluids. Discussed with patient that if the small bowel follow-through is unable to go through or if the pain got worse would plan for surgery. The add diagnostic laparoscopy, possible laparotomy, possible bowel resection. Discussed risk inc luding but not limited to bleeding, infection, need injury to another organ. Patient no further question this time. Priscilla Jarvis M.D. Pager: [phone] [facility] [address] [place] [address], Outpatient Pavilion, [address] [place] [id number] Office: [phone] HPI Consult Data Date of Consult: 08/01/22 HPI Narrative HPI Narrative: CAITLIN LUTZ, is a 62 M who initially presented to the ER due to abdominal pain. Patient states the pain started Thursday night/Thursday morning. Patient last bowel movement was Thursday night. Patient denies really flatus or eating in the meantime. Patient's had a previous surgery when he was little for abdominal mass but then he had also had ex lap I believe in 2010 due to a bowel obstruction. Unsure if patient had any bowel resection at that time. [facility] Medical History Angina at rest Anxiety Back pain Chest pain Depression Hearing loss, left History of intestinal obstruction (~1967) Hypothyroidism Migraine headache Myocardial infarct Palpitations Shortness of breath on exertion Smoker Wears glasses Home Medications aspirin 81 mg chewable tablet 81 mg PO DAILY 12/01/17 [History Last Taken Unknown] ibuprofen 800 mg tablet 800 mg PO Q8H PRN PRN Pain #20 tabs 12/01/17 [Rx Last Taken Unknown] levothyroxine 100 mcg tablet 100 mcg PO DAILY 12/01/17 [History Last Taken Unknown] tamsulosin 0.4 mg capsule (Flomax) 0.4 mg PO DAILY 07/31/22 [History Last Taken Unknown] Allergy/AdvReac Type Severity Reaction Status Date / Time No Known Allergies Allergy Verified 07/31/21 23:43 Family History Father No problems noted. Surgical History History of abdominal surgery Hx of resection of small bowel (~1968) Social History household members: none Smoking Status: Current every day smoker tobacco type: cigarettes substance use type: does not use ROS Constitutional Constitutional: Reports anorexia Eyes Eyes: Denies change in vision ENT HEENT: Denies dysphagia Cardiovascular Cardiovascular: Denies chest pain Respiratory/Chest Respiratory/Chest: Denies cough Gastrointestinal Gastrointestinal: Reports abdominal pain, bloating, constipation and nausea; Denies coffee ground emesis or diarrhea Genitourinary Genitourinary: Denies difficulty urinating Musculoskeletal Musculoskeletal: Denies muscle weakness Integumentary Integumentary: Denies jaundice Neurologic Neurologic: Denies dizziness Psychiatric Psychiatric: Reports anxiety; Denies depression Hematologic/Lymphatic Hematologic/Lymphatic: Denies easy bleeding Physical Exam Const alert, oriented x3 and no apparent distress HEENT normocephalic and head/scalp atraumatic Resp normal respiratory effort Cardio regular rate GI soft to palpation Palpation: tender other (Mildly tender diffuse, no rebound); Negative for guarding Extremity no clubbing, cyanosis or edema Neuro CN's II-XII intact bilaterally Psych mental status grossly normal Lab / Micro Data Result Diagrams: 08/01/22 04:52 08/01/22 04:52 Labs: Laboratory Results - last 24 hr 07/31/22 15:08: WBC 5.5, RBC 4.68, Hgb 15.6, Hct 47.0, MCV 100.4 H, MCH 33.3 H, MCHC 33.2, RDW Std Deviation 54.4 H, RDW Coeff of Son 14.6, Plt Count 230, MPV 9.5, Immature Gran % (Auto) 0.400, Neut % (Auto) 79.4 H, Lymph % (Auto) 8.9 L, [place] % (Auto) 9.8, Eos % (Auto) 1.3, Baso % (Auto) 0.2, Absolute Neuts (auto) 4.4, Absolute Lymphs (auto) 0.49 L, Nucleated RBC % 0, Differential Comment SCANNED 07/31/22 15:08: Sodium 138, Potassium 3.9, Chloride 105, Carbon Dioxide 27.0, Anion Gap 6, BUN 11, Creatinine 1.24, Estim Creat Clear Calc 59.76, Est GFR (MDRD) Af Amer 76, Est GFR (MDRD) Non-Af 63, BUN/Creatinine Ratio 8.9 L, Glucose 121 H, Calcium 9.8, Total Bilirubin 0.60, AST 15, ALT 17, Alkaline Phosphatase 56, Total Protein 7.5, Albumin 3.5, Globulin 4.0, Albumin/Globulin Ratio 0.9 07/31/22 15:08: Magnesium 2.1 08/01/22 04:52: Sodium 138, Potassium 4.1, Chloride 104, Carbon Dioxide 29.0, Anion Gap 5, BUN 13, Creatinine 1.44 H, Estim Creat Clear Calc 51.46, Est GFR (MDRD) Af Amer 64, Est GFR (MDRD) Non-Af 53 L, BUN/Creatinine Ratio 9.0 L, Glucose 88, Calcium 9.3 08/01/22 04:52: WBC 4.9, RBC 4.24 L, Hgb 14.8, Hct 43.9, MCV 103.5 H, MCH 34.9 H , MCHC 33.7, RDW Std Deviation 58.4 H, RDW Coeff of Son 15.1 H, Plt Count 210, MPV 10.1, Immature Gran % (Auto) 0.200, Neut % (Auto) 71.7 H, Lymph % (Auto) 11.2 L, [place] % (Auto) 11.8 H, Eos % (Auto) 4.7, Baso % (Auto) 0.4, Absolute Neuts (auto) 3.5, Absolute Lymphs (auto) 0.55 L, Nucleated RBC % 0, Differential Comment SCANNED Rhythm Strip Rhythm Strip: Sinus Tach Rate: 120 Ectopy: None Radiology Impression Abdomen/Pelvis CT 07/31/22 13:29 IMPRESSION: 1. Proximal small bowel occlusion at the level of the left mid abdomen. This is thought to be a partial functional small bowel obstruction secondary to compressed bowel, however, adhesion cannot be entirely ruled out. 2. Hypodensities in the liver. Cysts versus hemangiomas. 3. Enlarged prostate with questionable bladder outlet syndrome. Electronically Signed: Thanh Chavarria DO at 16:16 EST Reading Location ID and State: [address] [place] [address] Tel [phone], Service support , KUB X-Ray 07/31/22 17:06 IMPRESSION: 1. Enteric tube as described. This should be advanced to ensure the upper port lies within the gastric lumen. 2. Dilated small bowel loops in the left upper quadrant. Electronically Signed: Thanh Chavarria DO at 17:24 EST , KUB X-Ray 07/31/22 18:08 IMPRESSION: Interval advancement of the NG tube without other major interval change. Electronically Signed: Thanh Chavarria DO at 18:30 EST , Charges/Coding Visit Charges Inpatient E&M: 37047 Init Hosp L3
[2022-08-01] MEDS: Ondansetron 4 MG/2 ML Vial IV (08:34)
[2022-08-01] MEDS: 0.9% Saline Lock 10 ML Syringe IV ×2 (08:35→10:46)
--- NOTE | 2022-08-01 08:45 | RAD_ITS ---
STUDY: SMALL BOWEL FOLLOW-THROUGH EXAMINATION. REASON FOR EXAM: Male, 62 years old. sbo -- gastrografin TECHNIQUE: GASTROGRAFIN was introduced into the indwelling nasogastric tube. A small bowel follow-through examination was obtained. COMPARISON: None. FINDINGS: On the gig tender view, there is evidence of a mild degree of dilatation of proximal small bowel loops. A large amount of fecal material is seen in the colon. There is evidence of a dilated small bowel loops in the proximal small bowel down to the level of the jejunum. On the 2 hour image, there is no evidence of contrast distal to the proximal ileal loops. This is in keeping with a small bowel obstruction. Obstruction RAD/Small Bowel Series Only IMPRESSION: Small bowel obstruction with transition point in the region of the proximal ileum. Electronically Signed: Carlos Robledo MD at 13:12 EST ,
--- NOTE | 2022-08-01 10:17 | NURSING ---
Bety from Radiology called this RN and said pt was in a lot of pain. Pt in radiology for gastric study. Bety made aware that he had Morphine 4mg prior to coming down to radiology around 0830. This RN Texted Dr. Jarvis to inform. Waiting on response.
--- NOTE | 2022-08-01 10:48 | NURSING ---
back from radiology. medicated for pain.
--- NOTE | 2022-08-01 12:00 | COLBX_PTH ---
PATIENT: CAITLIN LUTZ LOC: MS3 U#:[id number] AGE/SX: 62/M [place] [facility] [place]: Dr. Vaibhav Grimes DO : 1960 BED: 1 DIS: 08/09/2022 SPEC #: [id number] RECD: 08/04/22 06:54 STATUS: BECCA REFrancisco #: [id number] XIOMY: 08/01/22 12:[address]: Priscilla Jarvis DEPT: SURGICAL PATHOLOGY RECD BY: Kristen Singh ENTERED: 08/04/22 10:13 SP TYPE: COLON BX OTHR DR: DO Dr. Vaibhav Elizalde DO Dr. Prakash Chand, MD Dr. Tamera Robotham, MD Tissues: Jejunum, NOS Procedures: Surgery Specimen Level V Comments: @ Ordering doctor for SUIV edited from to @ by ANNIA at 08/04/22 1521 @ Submitting doctor edited from to DR.TROBOT Gray by ANNIA at 08/04/22 1521 HEADER OPERATION: Diagnostic laparoscopy, converted to laparotomy PRE-OP DIAGNOSIS: Obstruction of small intestine TISSUE SUBMITTED: Mid jejunum MICROSCOPIC DIAGNOSIS Mid jejunum, segmental resection: Focal hemorrhagic mucosal infarction with associated acute ileitis and acute serositis. Margins of excision with no pathologic change. AM:alex 08/05/2022 COMMENT Case has been reviewed in consultation with Dr. Ritter who concurs with the above diagnosis. IDC:SJ MICROSCOPIC DESCRIPTION Slides are reviewed. GROSS DESCRIPTION Received in fixative is one container labeled with the patient's name and designated mid jejunum. The specimen consists of a segment of small intestine measuring 34.0 cm in length with small amount of mesenteric tissue attached. Both resection margins are stapled. Multiple areas of defects are noted in the bowel wall. No mucosal lesion is identified. The serosal surface is ragged and congested. Also present in the container is a donut-shaped piece of tissue measuring 5.0 x 2.0 x 1.0 cm. The lumen contains undigested food material. Seasonal Recruiter sections are submitted in six cassettes as follows: 1??resection margin, 2-4 - order entry representative sections from the bowel, 5 - mesenteric tissue, 6 - donut-shaped piece of tissue. / SJ:alex 08/04/2022 TC:2 CPT: 29570
--- NOTE | 2022-08-01 13:25 | CASEMGMT ---
RN?CM?VESSEL SLAGMAN?CM?to room to meet with patient for initial transition planning/care coordination?assessment.?RN?CM?introduced self and role at [facility].? Pt voices understanding and consents to?assessment?at this time.? Pt resting in bed in no distress at this time.? Pt is A/O at this time and answers all questions appropriately.?? Care providers, pharmacy, and demographics verified/updated at this time. PCP: Yeimi HAGAN Specialists: none Preferred [facility]acy: [facility] [place]: [place] Pres[place]it:[place] Living Will/HPOA:?Has both LW and HCPOA, who is his sister, Alexi Carr LNOK: Sister/POAAlexi. SisterKarissa Living Arrangements: Lives w/his nephew, but states his nephew is not home often, as they both come and go. States he is independent w/ADL's and IADL's and manages his own medications. Transportation:?Pt does not drive. He uses [employer] through [employer] DME: ? Denies using any DME and denies needs.? HHC/SNF: No hx of either. No needs identified. Pt wishes to return home and states has no concerns with going home at time of discharge.? Pt states he smokes 1 pack/week and states drinks ETOH sometimes. RN SHUBHAM inquired how often sometimes is and he stated again, sometimes. He declines wanting or needing resources for ETOH use. He states he used to use drugs a long time ago. CM?to follow for any discharge planning/needs.? Pt voices no concerns/needs at this time.? Advised pt to ask for?CM?if any questions/concerns/needs arise.? Voices understanding. PLAN:??Home Imer LOUISN?RN?CM
--- NOTE | 2022-08-01 13:51 | NURSING ---
Off the floor at this time. brought down to surgery via bed. Called sister and informed her per pts request.
[2022-08-01] MEDS: Lactated Ringers 1,000 ML 15 ML IV (14:19)
[2022-08-01 15:23] LABS: T4 Free Direct 0.73 ng/dL (0.76-1.46)
--- NOTE | 2022-08-01 18:11 | PCM.OPRPT ---
Report of Operation Date of Procedure: 08/01/22 Pre-Operative Diagnosis: Small bowel obstruction Post-Operative Diagnosis: Same Surgery/Procedure Performed:: Laparoscopic converted to laparotomy, small bowel resection and anastomosis, extensive lysis of adhesions, placement of ZEYNEP Surgeon: Priscilla Jarvis powdered sugar pulverizer operator: Yobany Bettencourt powdered sugar pulverizer operator: Madison Lockhart Type of Anesthesia: General/Supplemental Anesthesiologist: Annette Interiano Special Medications: Cefotetan grams IV x1 Specimen's removed: Mid jejunum --abt 30 cm Drains: 15 Fr ZEYNEP Estimated Blood Loss (mL): 20 cc Fluids Replaced: Per anesthesia Description of Procedure: Patient is brought to operating placed on operating table. Patient was placed supine on operating table. Timeout was completed verifying correct patient, procedure, site, positioning has been equipment prior began procedure. General anesthesia was induced. Patient abdomen was prepped draped in a sterile fashion with chlorhexidine. Supraumbilical incision was made 15 blade scalpel this was deepened with hemostats?there was a inadvertent enterotomy due to dense adhesions and hernia. Midline incision was made at the 15 blade scalpel and electrocautery and a large wound protector was placed.. Upon entry into the abdomen there was noted to be the enterotomy into the small bowel as well as densely adherent small bowel. Extensive lysis of adhesions of over an hour was done in order to free up the small bowel with Metzenbaums scissors. Site of the obstruction was mid jejunum unable to say exactly how far from the ileocecal valve due to additional adhesions. 75 RITIKA stapler was used to divide the small bowel with the enterotomies x2 and LigaSure impact was used to divide the mesentery. This is about 30 cm of mid jejunum was sent to pathology. Small bowel anastomosis was done using the 75 RITIKA stapler and TL 60 on the antimesenteric border. 3-0 silk was placed for crotch stitch. Using a staple line was oversewn with [id number] 3-0 Vicryl sutures. The mesentery was closed with 3-0 Vicryl suture. Abdomen was irrigated with saline. 15 Kyrgyz round ZEYNEP was placed in the pelvis exiting the right lower quadrant. This was sutured in place with 3-0 nylon suture. Wound protector was removed and gloves were changed. Midline fascia was closed with 0 Prolene running suture. Skin was closed with interrupted skin huy with Telfa wick soaked with Betadine x2. ABD pad and tape was placed. Patient tolerated procedure well was taken to the postanesthesia care in stable condition. Complications Inadvertent enterotomies x 2 due to dense adhesions
[2022-08-01] MEDS: Bupiv/Epi 0.25% 30 ML Vial (18:14)
[2022-08-01] MEDS: Ketorolac 15 MG/ML Vial IV (21:21)
[2022-08-02] VITALS (8 sets, daily range): BP systolic 88–103; BP diastolic 59–71; PULSE 93–96; RESP 16–18; TEMP 36.4–37; O2SAT 93–100; BMI 24.4
[2022-08-02] MEDS: oxyCODONE 5 MG Tablet PO (00:01)
[2022-08-02] MEDS: Lactated Ringers 1,000 ML 150 ML IV ×4 (02:07→22:38)
[2022-08-02] MEDS: Morphine 2 MG/ML Syringe IV (02:10)
[2022-08-02] MEDS: Ketorolac 15 MG/ML Vial IV (04:38)
--- NOTE | 2022-08-02 06:56 | PN.SURG_ITS ---
Subjective Subjective Patient seen and examined during AM rounds. He is found to be doing rather well postoperative day 1 from diagnostic laparoscopy converted to exploratory laparotomy with small bowel resection for small bowel obstruction. He denies any return of bowel function, but reports that his pain is overall well controlled. He currently rates this at a 4 out of 10. His only request is for allowance of ice chips. Objective Data Objective Data Vital Signs: Vital Signs Temp Pulse Resp BP Pulse Ox O2 Del Method O2 Flow Rate 98.2 F 96 16 99/62 100 Room Air 2 08/02/22 04:55 08/02/22 04:55 08/02/22 04:55 08/02/22 04:55 08/02/22 04:55 08/02/22 04:55 08/02/22 00:54 Oxygen Flow Rate (L/min) 2 Oxygen Delivery Method Room Air Weight: 161 lb 6.054 oz Body Mass Index (BMI) 24.4 Intake & Output: Intake and Output for Last 24 Hours 07/31/22 08/01/22 08/02/22 23:59 23:59 23:59 Intake Total 1050 / 1050 4036.42 / 4086.42 530 / 530 Output Total 660 / 700 760 / 760 Balance 1050 / 1050 3376.42 / 3386.42 -230 / -230 Lab / Micro Data Result Diagrams: 08/02/22 05:36 08/02/22 05:36 Labs: Laboratory Results - last 24 hr 08/01/22 04:52: TSH 53.50 H 08/01/22 04:52: Free T4 0.73 L Radiography Diagnostic Testing: Radiology Impression KUB X-Ray 08/01/22 05:05 IMPRESSION: Nonspecific bowel gas pattern without evidence of acute obstruction. Electronically Signed: Thanh Chavarria DO at 16:55 EST , Small Bowel X-Ray 08/01/22 08:45 IMPRESSION: Small bowel obstruction with transition point in the region of the proximal ileum. Electronically Signed: Carlos Robledo MD at 13:12 EST , Rhythm Strip Rhythm Strip: Sinus Tach Rate: 120 Ectopy: None Physical Exam Const oriented x3 and no apparent distress Resp normal respiratory effort GI GI Narrative: Abdominal distention present. Patient appropriately tender to palpation about laparotomy site. Right lower quadrant drain with serosanguineous output. Laparotomy incision is inspected and there is some serous drainage to the overl viry gauze. Wound lucille in place, but are slightly backed out from the wound. Assessment & Plan Assessment/Plan (1) Small bowel obstruction due to adhesions: (2) S/P small bowel resection: PLAN: Plan Patient is postoperative day 1 from diagnostic laparoscopy converted to exploratory laparotomy with small bowel resection (approximately 50 cm of jejunum) and primary stapled anastomosis. Overall his pain is controlled, but as expected, he is experiencing ileus. Nasogastric tube was continued from preop given this expectation. Patient requesting ice chips, which I am allowing, but have asked him to limit his intake to no more than 1 cup per shift. This will facilitate ins and outs accounting with his total nasogastric output. Otherwise, his wound is well-appearing and his drain output is unconcerning. We will continue expectant management. Neuro: As needed Dilaudid, discontinue Toradol on the account of VICTORINA Pulm/CV: Incentive spirometer, encourage ambulation FEN/GI: Daily monitoring of electrolytes, strict n.p.o. with NG tube to low intermittent wall suction (patient allowed 1 cup of ice chips per shift). : Monitor creatinine and discontinued Toradol as above Heme/ID: Hemoglobin stable postop, continue empiric Zosyn coverage given intraoperative contamination Endo: Should consider thyroid hormone supplementation based on severely increased TSH Proph: SCDs, encourage ambulation Dispo: Continue inpatient stay Charges/Coding Visit Charges Inpatient E&M: 81368 Subs Hosp L2
[2022-08-02 07:04] LABS: Absolute Lymphocyte Count 0.34 X10^3/uL (0.83-4.51); Absolute Neutrophil Count 5.6 X10^3/uL (2.0-7.7); Basophil# 0.02 X10^3/uL; Basophil% 0.3 % (0-1); Eosinophil# 0.01 X10^3/uL; Eosinophils% 0.2 % (0-5); Hematocrit 41.7 % (40-54); Lymphocyte # 0.34 X10^3/ul (0.83-4.51); Lymphocyte % 5.2 % (19-41); Mean Corp Hgb Conc 33.6 g/dL (32-36); Mean Corpuscular Hgb 33.9 pg (27.0-32.0); Mean Platelet Vol. 10.4 fl (6.2-12.0); Monocyte# 0.62 X10^3/uL; Monocyte% 9.5 % (0-10); NRBC Flagged by Analyzer 0 % (0-5); Neutrophil # 5.55 X10^3/uL (2.7-7.7); Neutrophil % 84.5 % (47-70); POSITIVE DIFFERENTIAL YES; POSITIVE MORPHOLOGY YES; Platelet Count 208 K/mm3 (150-450); RBC Distribution Width CV 14.7 % (11.6-14.6); RBC Distribution Width SD 55.3 fl (35.1-43.9); Red Blood Count 4.13 M/mm3 (4.6-6.2); White Blood Count 6.6 K/mm3 (4.4-11.0)
[2022-08-02 07:15] LABS: Differential Indicated SCAN CRITERIA MET
[2022-08-02 07:47] LABS: ALB/GLOB Ratio 0.8 RATIO (0.9-2.4); AST(SGOT) 14 U/L (15-37); Alanine Aminotransfer ALT/SGPT 11 U/L (16-61); Albumin, Serum 2.6 g/dL (3.2-5.0); Alkaline Phosphatase 39 U/L (45-117); Anion Gap 8 (5-15); BUN 20 mg/dL (7-18); BUN/Creat Ratio 9.2 RATIO (10-20); Calcium,Total 8.2 mg/dL (8.5-10.1); Chloride 104 mmol/L (98-107); Creatinine, Serum 2.18 mg/dL (0.70-1.30); EST Glomerular Filtration Rate 33 mL/min (>60); Est Glom Filt Rate - Afr Amer 40 mL/min (>60); Estimated Creatinine Clearance 33.99 ml/min; Globulin 3.4 g/dL (2.2-4.2); Glucose 118 mg/dL (74-106); Magnesium 1.4 mg/dL (1.6-2.6); Phosphorus 4.8 mg/dL (2.5-4.9); Potassium 4.4 mmol/L (3.5-5.1); Sodium Level 140 mmol/L (136-145)
[2022-08-02 07:55] LABS: Macrocytosis 1+; Platelet Estimate ADEQUATE (ADEQ)
[2022-08-02] MEDS: Magnesium Sulfate 4gm/100mL 4 GM/100 ML IV.SOLN. IV (10:01)
[2022-08-02] MEDS: 0.9% Saline Lock 10 ML Syringe IV ×3 (10:02→20:29)
[2022-08-02] MEDS: HYDROmorphone 0.5 MG/0.5 ML SYRINGE IV ×3 (11:47→20:29)
--- NOTE | 2022-08-02 13:52 | PN.HOSP_ITS ---
Reason for Visit Reason for Visit: Abdominal pain with decreased flatus and absence of bowel movements Subjective Subjective Patient to the OR yesterday at which time he had a laparotomy with 55 cm of small bowel resection. Currently with postoperative ileus. States his pain is well controlled when medicated. NG in place with no nausea or vomiting. No cur rent complaints. Objective Data Objective Data Vital Signs: Vital Signs Temp Pulse Resp BP Pulse Ox O2 Del Method O2 Flow Rate 98.0 F 95 18 94/66 95 Room Air 2 08/02/22 09:39 08/02/22 09:39 08/02/22 09:39 08/02/22 09:40 08/02/22 09:39 08/02/22 09:39 08/02/22 00:54 Oxygen Flow Rate (L/min) 2 Oxygen Delivery Method Room Air Weight: 73.2 kg Body Mass Index (BMI) 24.4 Intake & Output: Intake and Output for Last 24 Hours 07/31/22 08/01/22 08/02/22 23:59 23:59 23:59 Intake Total 1050 / 1050 4036.42 / 4086.42 932.5 / 932.5 Output Total 660 / 700 760 / 760 Balance 1050 / 1050 3376.42 / 3386.42 172.5 / 172.5 Lab / Micro Data Result Diagrams: 08/02/22 05:36 08/02/22 05:36 Labs: Laboratory Results - last 24 hr 08/01/22 04:52: Free T4 0.73 L 08/02/22 05:36: WBC 6.6, RBC 4.13 L, Hgb 14.0, Hct 41.7, MCV 101.0 H, MCH 33.9 H , MCHC 33.6, RDW Std Deviation 55.3 H, RDW Coeff of Son 14.7 H, Plt Count 208, MPV 10.4, Immature Gran % (Auto) 0.300, Neut % (Auto) 84.5 H, Lymph % (Auto) 5.2 L, [place] % (Auto) 9.5, Eos % (Auto) 0.2, Baso % (Auto) 0.3, Absolute Neuts (auto) 5.6, Absolute Lymphs (auto) 0.34 L, Nucleated RBC % 0, Platelet Estimate ADEQUATE, Macrocytosis 1+ 08/02/22 05:36: Sodium 140, Potassium 4.4, Chloride 104, Carbon Dioxide 28.0, Anion Gap 8, BUN 20 H, Creatinine 2.18 H, Estim Creat Clear Calc 33.99, Est GFR (MDRD) Af Amer 40 L, Est GFR (MDRD) Non-Af 33 L, BUN/Creatinine Ratio 9.2 L, Glucose 118 H, Calcium 8.2 L, Phosphorus 4.8, Magnesium 1.4 L, Total Bilirubin 1.20 H, AST 14 L, ALT 11 L, Alkaline Phosphatase 39 L, Total Protein 6.0 L, Albumin 2.6 L, Globulin 3.4, Albumin/Globulin Ratio 0.8 L Radiography Diagnostic Testing: Radiology Impression KUB X-Ray 08/01/22 05:05 IMPRESSION: Nonspecific bowel gas pattern without evidence of acute obstruction. Electronically Signed: Thanh Chavarria DO at 16:55 EST Reading Location ID and State: [address] [place] [address] Tel [phone], Service support , Rhythm Strip Rhythm Strip: Sinus Tach Rate: 120 Ectopy: None Physical Exam Const alert and oriented x3 Constitutional Narrative: Upper middle-aged, -[place] male, lying in bed, appears if he is not fee ling well still, nontoxic, very pleasant HEENT head/scalp atraumatic and moist oral mucous membranes HEENT Narrative: Right nares NG tube in place, Mallampati is 2, no thrush Head and Scalp: normocephalic Resp normal respiratory effort, no retractions, no use of accessory muscles and clear to auscultation bilaterally Resp Narrative: Diffusely diminished but clear Auscultation: Negative for rales, rhonchi or wheezes Cardio regular rate, regular rhythm, S1 normal heart sound, S2 normal heart sound, no murmurs, no rub, no gallops and no clicks GI GI Narrative: Abdomen is postoperative with large dressing in place-dressing is clean dry and intact, abdomen is soft with diffuse tenderness related to surgery, bowel sounds are hypoactive Extremity no clubbing, cyanosis or edema Extremity Narrative: 2+ pedal pulses Neuro oriented x3, moves all extremities and no focal motor deficits Speech: speech normal Psych Psych Narrative: Very pleasant, appropriate, affect is somewhat flat Assessment & Plan Assessment/Plan (1) Partial obstruction of small intestine: (2) Acute dehydration: (3) Elevated serum creatinine: PLAN: Plan Small bowel obstruction secondary to adhesions -Postop day 1 exploratory laparotomy with small bowel resection (approximately 50 cm of jejunum) and primary stapled anastomosis -Continue IV fluids with LR -Maintain n.p.o. -As needed pain medication -Antiemetics -Continue Zosyn -General surgery following-appreciate input Postoperative ileus -Expected -Continue hydration -Await return of bowel function -May be prolonged time given extensiveness of surgery -May need to consider TPN Serum creatinine elevation -Serum creatinine 1.62 on admission -Serum creatinine up to 2.18 today despite hydration -Suspect this may be related to blood pressure issues intraoperatively -We will continue IV fluids and repeat lab in a.m. -Baseline is unclear Hypomagnesemia -4 gm mag bolus and repeat in am Intractable nausea/vomiting -Resolved Hypothyroidism -Hold levothyroxine p.o. -TSH found to be markedly elevated at 53.5 and free T4 was expectedly low at 0.73 -It sounds like his home compliance has been somewhat sketchy so we will go ahead and utilize his home dose -He told as it has been at least a couple of weeks since he took his last dose -Start IV Synthroid 50 mcg daily -This could potentially have complicated his bowel obstruction BPH -Restart Flomax once able to take p.o. -Consider Myrick if urinary retention History of migraine headaches -Patient complained of mild headache on admission but not migraine quality -As needed pain medication available Alcohol abuse -Typically only drinks on weekends. -Has been heavy drinker previously -No signs of withdrawal -Monitor closely History of crack cocaine abuse -Remote Tobacco abuse -Patient still smokes about 1 pack a week -Recommend cessation -Nicotine patch if needed DVT prophylaxis -Enoxaparin 40 mg subcu daily CODE STATUS -Full code -We will place order Charges/Coding Visit Charges Inpatient E&M: 24492 Subs Hosp L2
[2022-08-02] MEDS: LEVOTHYROXINE SODIUM 100 MCG VIAL 50 MCG IV (16:27)
[2022-08-03] VITALS (7 sets, daily range): BP systolic 98–127; BP diastolic 71–79; PULSE 95–107; RESP 16–18; TEMP 36.6–37.3; O2SAT 93–100; BMI 25.1
[2022-08-03] MEDS: HYDROmorphone 0.5 MG/0.5 ML SYRINGE IV ×5 (04:08→22:38)
[2022-08-03] MEDS: 0.9% Saline Lock 10 ML Syringe IV ×5 (04:08→22:38)
[2022-08-03] MEDS: Lactated Ringers 1,000 ML 150 ML IV (04:11)
[2022-08-03 05:58] LABS: Absolute Lymphocyte Count 0.33 X10^3/uL (0.83-4.51); Absolute Neutrophil Count 6.3 X10^3/uL (2.0-7.7); Basophil# 0.02 X10^3/uL; Basophil% 0.3 % (0-1); Eosinophil# 0.37 X10^3/uL; Hematocrit 36.3 % (40-54); Lymphocyte # 0.33 X10^3/ul (0.83-4.51); Lymphocyte % 4.4 % (19-41); Mean Corp Hgb Conc 33.1 g/dL (32-36); Mean Corpuscular Hgb 33.3 pg (27.0-32.0); Mean Corpuscular Volume 100.8 fL (80-94); Mean Platelet Vol. 10.1 fl (6.2-12.0); Monocyte# 0.37 X10^3/uL; NRBC Flagged by Analyzer 0 % (0-5); Neutrophil # 6.32 X10^3/uL (2.7-7.7); Neutrophil % 84.8 % (47-70); POSITIVE DIFFERENTIAL YES; POSITIVE MORPHOLOGY YES; Platelet Count 179 K/mm3 (150-450); RBC Distribution Width CV 14.7 % (11.6-14.6); RBC Distribution Width SD 55.3 fl (35.1-43.9); White Blood Count 7.5 K/mm3 (4.4-11.0)
[2022-08-03 06:02] LABS: Differential Indicated SCAN CRITERIA MET
[2022-08-03 06:21] LABS: Differential Comment SCANNED
[2022-08-03 06:46] LABS: ALB/GLOB Ratio 0.6 RATIO (0.9-2.4); AST(SGOT) 18 U/L (15-37); Alanine Aminotransfer ALT/SGPT 11 U/L (16-61); Albumin, Serum 2.2 g/dL (3.2-5.0); Alkaline Phosphatase 43 U/L (45-117); Anion Gap 4 (5-15); BUN 21 mg/dL (7-18); BUN/Creat Ratio 11.1 RATIO (10-20); Calcium,Total 8.1 mg/dL (8.5-10.1); Chloride 105 mmol/L (98-107); Creatinine, Serum 1.89 mg/dL (0.70-1.30); EST Glomerular Filtration Rate 39 mL/min (>60); Est Glom Filt Rate - Afr Amer 47 mL/min (>60); Estimated Creatinine Clearance 39.21 ml/min; Globulin 3.6 g/dL (2.2-4.2); Glucose 102 mg/dL (74-106); Magnesium 2.6 mg/dL (1.6-2.6); Phosphorus 2.1 mg/dL (2.5-4.9); Protein, Total 5.8 g/dL (6.4-8.2); Sodium Level 138 mmol/L (136-145)
[2022-08-03] MEDS: Ondansetron 4 MG/2 ML Vial IV (08:21)
--- NOTE | 2022-08-03 08:25 | PN.SURG_ITS ---
Subjective Subjective Patient is found resting in bed when I arrived, but states you have bad timing doc. When asked what he means by this he states that he was nearly dozing when I arrived. He reports uncontrolled pain and states that his pain medication simply does not last for the 4-hour interval as currently prescribed. He also asks, again, to have his prostate medication restarted because he thinks that his urine is building up and this is what is causing his discomfort. He denies any passage of gas and continues to confirm abdominal distention. Objective Data Objective Data Vital Signs: Vital Signs Temp Pulse Resp BP Pulse Ox O2 Del Method O2 Flow Rate 99.1 F 103 H 18 98/71 93 Room Air 2 08/03/22 02:30 08/03/22 02:30 08/03/22 02:30 08/03/22 02:30 08/03/22 07:12 08/03/22 07:12 08/02/22 00:54 Oxygen Flow Rate (L/min) 2 Oxygen Delivery Method Room Air Weight: 166 lb 0.129 oz Body Mass Index (BMI) 25.1 Intake & Output: Intake and Output for Last 24 Hours 08/01/22 08/02/22 08/03/22 23:59 23:59 23:59 Intake Total 4036.42 / 4086.42 2887.5 / 2887.5 1512.5 / 1512.5 Output Total 660 / 700 1170 / 1170 570 / 570 Balance 3376.42 / 3386.42 1717.5 / 1717.5 942.5 / 942.5 Lab / Micro Data Result Diagrams: 08/03/22 04:58 08/03/22 04:58 Labs: Laboratory Results - last 24 hr 08/03/22 04:58: WBC 7.5, RBC 3.60 L, Hgb 12.0 L, Hct 36.3 L, MCV 100.8 H, MCH 33.3 H, MCHC 33.1, RDW Std Deviation 55.3 H, RDW Coeff of Son 14.7 H, Plt Count 179, MPV 10.1, Immature Gran % (Auto) 0.500, Neut % (Auto) 84.8 H, Lymph % (Auto) 4.4 L, [place] % (Auto) 5.0, Eos % (Auto) 5.0, Baso % (Auto) 0.3, Absolute Neuts (auto) 6.3, Absolute Lymphs (auto) 0.33 L, Nucleated RBC % 0, Differential Comment SCANNED 08/03/22 04:58: Sodium 138, Potassium 4.0, Chloride 105, Carbon Dioxide 29.0, Anion Gap 4 L, BUN 21 H, Creatinine 1.89 H, Estim Creat Clear Calc 39.21, Est GFR (MDRD) Af Amer 47 L, Est GFR (MDRD) Non-Af 39 L, BUN/Creatinine Ratio 11.1, Glucose 102, Calcium 8.1 L, Phosphorus 2.1 L, Magnesium 2.6, Total Bilirubin 1.00, AST 18, ALT 11 L, Alkaline Phosphatase 43 L, Total Protein 5.8 L, Albumin 2.2 L, Globulin 3.6, Albumin/Globulin Ratio 0.6 L Rhythm Strip Rhythm Strip: Sinus Tach Rate: 120 Ectopy: None Physical Exam Const oriented x3 Constitutional Narrative: Mild distress from pain Resp normal respiratory effort GI GI Narrative: Distended abdomen with strikethrough to operative dressings. Beneath this his wound is waked and draining serosanguineous fluid. There is slight erythema along the superior margin of his laparotomy wound. His right lateral ZEYNEP drain has some serosanguineous fluid in the bulb, but the tubing appears clogged by blood clots. There is tenderness with palpation diffusely. Assessment & Plan Assessment/Plan (1) Small bowel obstruction due to adhesions: (2) S/P small bowel resection: PLAN: Plan Patient is postoperative day 2 from diagnostic laparoscopy converted to exploratory laparotomy with small bowel resection (approximately 50 cm of jej unum) and primary stapled anastomosis. Patient experiencing some breakthrough pain so we will increase his dose of as needed Dilaudid. Still also exhibiting signs of an ileus postoperatively. Nasogastric tube remains in place for this issue. Once again, Mr. Carr asked for resumption of his BPH medications. I have cautioned him that he would likely derive little benefit if any from this given his lack of bowel function, but I have resolved to administer the medication, clamp his nasogastric tube for 1 hour post administration and then return to suction. Mr. Carr is satisfied with this compromise. Neuro: As needed Dilaudid (dosage increased by Dr. Murray), Toradol discontinued 08/02/2022 on account of VICTORINA Pulm/CV: Incentive spirometer, encourage ambulation FEN/GI: Daily monitoring of electrolytes, strict n.p.o. with NG tube to low intermittent wall suction (patient allowed 1 cup of ice chips per shift). Patient encouraged to sit in a chair and ambulate more today. : Continue to monitor creatinine and discontinued Toradol as above Heme/ID: Hemoglobin slightly down trended?this could be multifactorial given postoperative state as well as hemodilution with ongoing IV fluid support, white blood cell count remains within normal limits?continue empiric Zosyn coverage given intraoperative contamination Endo: Should consider thyroid hormone supplementation based on severely incre ased TSH Proph: SCDs, encourage ambulation Dispo: Continue inpatient stay Charges/Coding Visit Charges Inpatient E&M: 93949 Subs Hosp L2
[2022-08-03] MEDS: HYDROmorphone 1 MG/ML Syringe IV (12:00)
--- NOTE | 2022-08-03 12:46 | NURSING ---
Patient refused tele monitor at this time, monitor off patient
--- NOTE | 2022-08-03 13:36 | PCM.PN.HOSP ---
Reason for Visit Reason for Visit: Abdominal pain/nausea/vomiting Subjective Subjective Patient with increased pain overnight. No flatus or bowel movement. Strongly encourage patient to get up and move around. Patient states general surgery to this as well as. Objective Data Objective Data Vital Signs: Vital Signs Temp Pulse Resp BP Pulse Ox O2 Del Method O2 Flow Rate 98.4 F 98 16 114/71 95 Room Air 2 08/03/22 08:00 08/03/22 08:00 08/03/22 08:00 08/03/22 08:00 08/03/22 08:00 08/03/22 08:35 08/02/22 00:54 Oxygen Flow Rate (L/min) 2 Oxygen Delivery Method Room Air Weight: 75.3 kg Body Mass Index (BMI) 25.1 Intake & Output: Intake and Output for Last 24 Hours 08/01/22 08/02/22 08/03/22 23:59 23:59 23:59 Intake Total 4036.42 / 4086.42 2887.5 / 2887.5 1869.5 / 1869.5 Output Total 660 / 700 1170 / 1170 610 / 610 Balance 3376.42 / 3386.42 1717.5 / 1717.5 1259.5 / 1259.5 Lab / Micro Data Result Diagrams: 08/03/22 04:58 08/03/22 04:58 Labs: Laboratory Results - last 24 hr 08/03/22 04:58: WBC 7.5, RBC 3.60 L, Hgb 12.0 L, Hct 36.3 L, MCV 100.8 H, MCH 33.3 H, MCHC 33.1, RDW Std Deviation 55.3 H, RDW Coeff of Son 14.7 H, Plt Count 179, MPV 10.1, Immature Gran % (Auto) 0.500, Neut % (Auto) 84.8 H, Lymph % (Auto) 4.4 L, [place] % (Auto) 5.0, Eos % (Auto) 5.0, Baso % (Auto) 0.3, Absolute Neuts (auto) 6.3, Absolute Lymphs (auto) 0.33 L, Nucleated RBC % 0, Differential Comment SCANNED 08/03/22 04:58: Sodium 138, Potassium 4.0, Chloride 105, Carbon Dioxide 29.0, Anion Gap 4 L, BUN 21 H, Creatinine 1.89 H, Estim Creat Clear Calc 39.21, Est GFR (MDRD) Af Amer 47 L, Est GFR (MDRD) Non-Af 39 L, BUN/Creatinine Ratio 11.1, Glucose 102, Calcium 8.1 L, Phosphorus 2.1 L, Magnesium 2.6, Total Bilirubin 1.00, AST 18, ALT 11 L, Alkaline Phosphatase 43 L, Total Protein 5.8 L, Albumin 2.2 L, Globulin 3.6, Albumin/Globulin Ratio 0.6 L Rhythm Strip Rhythm Strip: Sinus Tach Rate: 120 Ectopy: None Physical Exam Const alert, oriented x3 and no apparent distress Constitutional Narrative: Upper middle-aged, -[place] male, lying in bed, appears comfortable at this time, nontoxic, NG in right nares HEENT head/scalp atraumatic and moist oral mucous membranes HEENT Narrative: NG in right nares Head and Scalp: normocephalic Resp normal respiratory effort, no retractions, no use of accessory muscles and clear to auscultation bilaterally Resp Narrative: Diffusely diminished but clear, deep respiration is somewhat guarded Auscultation: Negative for rales, rhonchi or wheezes Cardio regular rate, regular rhythm, S1 normal heart sound, S2 normal heart sound, no murmurs, no rub, no gallops and no clicks GI GI Narrative: Postoperative incision is clean dry and intact, bowel sounds are hypoactive, abdomen is diffusely tender but soft, no distention, ZEYNEP with serosanguineous drainage Extremity no clubbing, cyanosis or edema Extremity Narrative: 2+ pedal pulses Neuro oriented x3 and moves all extremities Speech: speech normal Psych Psych Narrative: Affect is flat Assessment & Plan Assessment/Plan (1) Partial obstruction of small intestine: (2) Acute dehydration: (3) Elevated serum creatinine: (4) Hypomagnesemia: (5) Abnormal TSH: PLAN: Plan Small bowel obstruction secondary to adhesions -Postop day 2 exploratory laparotomy with small bowel resection (approximately 50 cm of jejunum) and primary stapled anastomosis -Continue IV fluids with LR but decrease rate to 75 cc/h -Maintain n.p.o. -As needed pain medication -Antiemetics -Continue Zosyn -General surgery following-appreciate input Postoperative ileus -Expected -Continue hydration -Await return of bowel function -May be prolonged time given extensiveness of surgery -May need to consider TPN Serum creatinine elevation -Serum creatinine 1.62 on admission--> trended up to 2.18 postoperatively however suspect this may be related to postoperative blood pressure issues -Serum creatinine trending back down today at 1.89 this morning -Avoid nephrotoxins -We will continue IV fluids but decrease rate -Baseline is unclear Hypomagnesemia - resolved Hypothyroidism -Hold levothyroxine p.o. -TSH found to be markedly elevated at 53.5?and free T4 was expectedly low at 0.73 -It sounds like his home compliance has been somewhat sketchy so we will go ahead and utilize his home dose -He told as it has been at least a couple of weeks since he took his last dose -Continue IV Synthroid 50 mcg daily since he was so hypothyroid on presentation and this can exacerbate his ileus postoperatively BPH -Restart Flomax once able to take p.o. or if okay per general surgery -Consider Myrick if urinary retention History of migraine headaches -Patient complained of mild headache on admission but not migraine quality -As needed pain medication available Alcohol abuse -Typically only drinks on weekends. -Has been heavy drinker previously -No signs of withdrawal -Monitor closely History of crack cocaine abuse -Remote Tobacco abuse -Patient still smokes about 1 pack a week -Recommend cessation -Nicotine patch if needed DVT prophylaxis -SCDs -Chemoprophylaxis at the discretion of general surgery CODE STATUS -Full code Charges/Coding Visit Charges Inpatient E&M: 53962 Subs Hosp L2
[2022-08-03] MEDS: LEVOTHYROXINE SODIUM 100 MCG VIAL 50 MCG IV (14:40)
[2022-08-03] MEDS: Lactated Ringers 1,000 ML 75 ML IV (15:41)
[2022-08-04] MEDS: 0.9% Saline Lock 10 ML Syringe IV ×4 (03:14→22:20)
[2022-08-04] MEDS: HYDROmorphone 0.5 MG/0.5 ML SYRINGE IV ×5 (03:14→22:20)
[2022-08-04] MEDS: Lactated Ringers 1,000 ML 75 ML IV (03:17)
[2022-08-04 03:26] VITALS: BP 118/70; PULSE 104; RESP 16; TEMP 36.8; O2SAT 93
[2022-08-04 05:07] VITALS: BMI 26.9
[2022-08-04 05:44] LABS: Absolute Lymphocyte Count 0.36 X10^3/uL (0.83-4.51); Absolute Neutrophil Count 7.1 X10^3/uL (2.0-7.7); Basophil# 0.02 X10^3/uL; Basophil% 0.2 % (0-1); Eosinophil# 0.84 X10^3/uL; Eosinophils% 9.6 % (0-5); Hematocrit 32.2 % (40-54); Hemoglobin 10.7 g/dL (13.0-16.5); Lymphocyte # 0.36 X10^3/ul (0.83-4.51); Lymphocyte % 4.1 % (19-41); Mean Corp Hgb Conc 33.2 g/dL (32-36); Mean Corpuscular Hgb 33.2 pg (27.0-32.0); Mean Platelet Vol. 10.2 fl (6.2-12.0); Monocyte# 0.44 X10^3/uL; NRBC Flagged by Analyzer 0 % (0-5); Neutrophil # 7.07 X10^3/uL (2.7-7.7); Neutrophil % 80.4 % (47-70); POSITIVE DIFFERENTIAL YES; Platelet Count 200 K/mm3 (150-450); RBC Distribution Width CV 14.6 % (11.6-14.6); RBC Distribution Width SD 54.3 fl (35.1-43.9); Red Blood Count 3.22 M/mm3 (4.6-6.2); White Blood Count 8.8 K/mm3 (4.4-11.0)
[2022-08-04 06:10] LABS: Differential Indicated SCAN CRITERIA MET
[2022-08-04 06:27] LABS: Anion Gap 6 (5-15); BUN 16 mg/dL (7-18); BUN/Creat Ratio 11.4 RATIO (10-20); Calcium,Total 8.3 mg/dL (8.5-10.1); Chloride 106 mmol/L (98-107); EST Glomerular Filtration Rate 55 mL/min (>60); Est Glom Filt Rate - Afr Amer 66 mL/min (>60); Estimated Creatinine Clearance 52.93 ml/min; Glucose 89 mg/dL (74-106); Magnesium 2.4 mg/dL (1.6-2.6); Phosphorus 2.1 mg/dL (2.5-4.9); Potassium 3.9 mmol/L (3.5-5.1); Sodium Level 139 mmol/L (136-145)
[2022-08-04 06:44] LABS: Differential Comment SCANNED
[2022-08-04 07:14] VITALS: O2SAT 94
--- NOTE | 2022-08-04 08:36 | PN.SURG_ITS ---
Subjective Subjective Patient states abdominal pain is better. Denies any flatus currently-- NG in place Objective Data Objective Data Vital Signs: Vital Signs Temp Pulse Resp BP Pulse Ox O2 Del Method O2 Flow Rate 98.2 F 104 H 16 118/70 93 Room Air 2 08/04/22 03:26 08/04/22 03:26 08/04/22 03:26 08/04/22 03:26 08/04/22 03:26 08/04/22 03:26 08/02/22 00:54 Oxygen Flow Rate (L/min) 2 Oxygen Delivery Method Room Air Weight: 178 lb Body Mass Index (BMI) 26.9 Intake & Output: Intake and Output for Last 24 Hours 08/02/22 08/03/22 08/04/22 23:59 23:59 23:59 Intake Total 2887.5 / 2887.5 2449.5 / 2449.5 970 / 970 Output Total 1170 / 1170 680 / 700 235 / 235 Balance 1717.5 / 1717.5 1769.5 / 1749.5 735 / 735 Lab / Micro Data Result Diagrams: 08/04/22 04:55 08/04/22 04:55 Labs: Laboratory Results - last 24 hr 08/04/22 04:55: WBC 8.8, RBC 3.22 L, Hgb 10.7 L, Hct 32.2 L, MCV 100.0 H, MCH 33.2 H, MCHC 33.2, RDW Std Deviation 54.3 H, RDW Coeff of Son 14.6, Plt Count 200, MPV 10.2, Immature Gran % (Auto) 0.700, Neut % (Auto) 80.4 H, Lymph % (Auto) 4.1 L, [place] % (Auto) 5.0, Eos % (Auto) 9.6 H, Baso % (Auto) 0.2, Absolute Neuts (auto) 7.1, Absolute Lymphs (auto) 0.36 L, Nucleated RBC % 0, Differential Comment SCANNED 08/04/22 04:55: Sodium 139, Potassium 3.9, Chloride 106, Carbon Dioxide 27.0, Anion Gap 6, BUN 16, Creatinine 1.40 H, Estim Creat Clear Calc 52.93, Est GFR (MDRD) Af Amer 66, Est GFR (MDRD) Non-Af 55 L, BUN/Creatinine Ratio 11.4, Glucose 89, Calcium 8.3 L, Phosphorus 2.1 L, Magnesium 2.4 Rhythm Strip Rhythm Strip: Sinus Tach Rate: 120 Ectopy: None Physical Exam Const oriented x3 and no apparent distress Constitutional Narrative: NG in place Resp normal respiratory effort Cardio regular rate GI GI Narrative: Soft, appropriately tender to palpation near incision, incision dressed, ZEYNEP serosanguineous Assessment & Plan Assessment/Plan (1) Small bowel obstruction due to adhesions: (2) S/P small bowel resection: PLAN: Plan Await bowel function NG/ice chips/IV fluids Continue pain control Encourage out of bed to chair and ambulation Priscilla Jarvis M.D. Pager: [phone] [facility] [address] [place] [address], [facility], [address] [place] [id number] Office: [phone]
[2022-08-04 09:16] VITALS: BP 114/72; PULSE 97; RESP 18; TEMP 36.6; O2SAT 93
[2022-08-04] MEDS: HYDROmorphone 1 MG/ML Syringe IV (10:29)
--- NOTE | 2022-08-04 11:29 | NURSING ---
pt is angry at this nurse because he wants me to awaken him from a sleeping state q2h and give dilaudid 1 mg-he states we are not on same page about getting out of bed and or to the chair-he refuses to use his I.S.
[2022-08-04] MEDS: LEVOTHYROXINE SODIUM 100 MCG VIAL 50 MCG IV (13:39)
[2022-08-04 14:00] VITALS: BP 118/77; PULSE 98; RESP 18; TEMP 36.6; O2SAT 95
--- NOTE | 2022-08-04 18:18 | PCM.PN.HOSP ---
Reason for Visit Reason for Visit: Diagnoses Hypomagnesemia (07/31/22) Dehydration (07/31/22) Intestinal adhesions [bands], unspecified as to partial versus complete obstruction (07/31/22) Partial intestinal obstruction, unspecified as to cause (07/31/22) Other specified abnormal findings of blood chemistry (07/31/22) Acquired absence of other specified parts of digestive tract (07/31/22) Subjective Subjective Patient was seen and examined today, he still has an NG tube in place, patient does not complain of any abdominal pain to this examiner. Objective Data Objective Data Vital Signs: Vital Signs Temp Pulse Resp BP Pulse Ox O2 Del Method O2 Flow Rate 97.8 F 98 18 118/77 95 Room Air 2 08/04/22 14:00 08/04/22 14:00 08/04/22 14:00 08/04/22 14:00 08/04/22 14:00 08/04/22 14:00 08/02/22 00:54 Oxygen Flow Rate (L/min) 2 Oxygen Delivery Method Room Air Weight: 80.739 kg Body Mass Index (BMI) 26.9 Intake & Output: Intake and Output for Last 24 Hours 08/02/22 08/03/22 08/04/22 23:59 23:59 23:59 Intake Total 2887.5 / 2887.5 2449.5 / 2449.5 1850 / 1850 Output Total 1170 / 1170 680 / 700 295 / 295 Balance 1717.5 / 1717.5 1769.5 / 1749.5 1555 / 1555 Lab / Micro Data Result Diagrams: 08/04/22 04:55 08/04/22 04:55 Labs: Laboratory Results - last 24 hr 08/04/22 04:55: WBC 8.8, RBC 3.22 L, Hgb 10.7 L, Hct 32.2 L, MCV 100.0 H, MCH 33.2 H, MCHC 33.2, RDW Std Deviation 54.3 H, RDW Coeff of Son 14.6, Plt Count 200, MPV 10.2, Immature Gran % (Auto) 0.700, Neut % (Auto) 80.4 H, Lymph % (Auto) 4.1 L, [place] % (Auto) 5.0, Eos % (Auto) 9.6 H, Baso % (Auto) 0.2, Absolute Neuts (auto) 7.1, Absolute Lymphs (auto) 0.36 L, Nucleated RBC % 0, Differential Comment SCANNED 08/04/22 04:55: Sodium 139, Potassium 3.9, Chloride 106, Carbon Dioxide 27.0, Anion Gap 6, BUN 16, Creatinine 1.40 H, Estim Creat Clear Calc 52.93, Est GFR (MDRD) Af Amer 66, Est GFR (MDRD) Non-Af 55 L, BUN/Creatinine Ratio 11.4, Glucose 89, Calcium 8.3 L, Phosphorus 2.1 L, Magnesium 2.4 Rhythm Strip Rhythm Strip: Sinus Tach Rate: 120 Ectopy: None Physical Exam Const alert, oriented x3, no apparent distress, average body habitus and healthy appearing General Appearance: cooperative, well kempt and well developed Orientation / Consciousness: awake, oriented to person, oriented to place and oriented to time HEENT normocephalic, head/scalp atraumatic and moist oral mucous membranes Eyes PERRL, EOMs intact bilaterally and conjunctivae normal Neck supple, no JVD and thyroid normal General: trachea midline Resp normal respiratory effort, no retractions, no use of accessory muscles and clear to auscultation bilaterally Auscultation: Negative for rales, rhonchi or wheezes Cardio regular rate, regular rhythm, S1 normal heart sound, S2 normal heart sound, no murmurs, no rub and no gallops GI GI Narrative: NG tube is in place, abdomen is soft overall, bowel sounds were not appreciated Extremity no clubbing, cyanosis or edema Skin no rashes or lesions noted General Skin Exam: no breakdown Neuro oriented x3, CN's II-XII intact bilaterally, moves all extremities, no focal motor deficits and no sensory deficits noted Sensorium / Orientation: awake and alert Speech: speech normal Psych affect normal Assessment & Plan Assessment/Plan (1) Small bowel obstruction due to adhesions: PLAN: Plan 1. Small bowel obstruction secondary to adhesions-postop day #3 exploratory laparotomy with small bowel resection-continue IV antibiotics presently, general surgery is participating in his care #2 hypothyroidism-patient is on IV Synthroid #3 BPH-patient is on Flomax as an outpatient, this is being held due to his n.p.o. status. Total clinical time spent by myself addressing the patient's medical issues, reviewing the data, and collaborating with patient's care team: 25 minutes Charges/Coding Visit Charges Inpatient E&M: 28181 Subs Hosp L1
[2022-08-04 20:30] VITALS: BP 130/89; PULSE 106; RESP 16; TEMP 37.3; O2SAT 96
[2022-08-05] MEDS: Lactated Ringers 1,000 ML 75 ML IV ×2 (03:21→14:23)
[2022-08-05] MEDS: HYDROmorphone 0.5 MG/0.5 ML SYRINGE IV ×2 (03:24→19:52)
[2022-08-05] MEDS: 0.9% Saline Lock 10 ML Syringe IV ×2 (03:24→19:52)
[2022-08-05 06:30] VITALS: BP 111/74; PULSE 90; RESP 16; TEMP 37.1; O2SAT 92
[2022-08-05 06:46] LABS: Absolute Lymphocyte Count 0.51 X10^3/uL (0.83-4.51); Absolute Neutrophil Count 6.4 X10^3/uL (2.0-7.7); Basophil# 0.03 X10^3/uL; Basophil% 0.3 % (0-1); Eosinophil# 1.05 X10^3/uL; Eosinophils% 12.2 % (0-5); Hemoglobin 10.5 g/dL (13.0-16.5); Lymphocyte # 0.51 X10^3/ul (0.83-4.51); Lymphocyte % 5.9 % (19-41); Mean Corp Hgb Conc 33.9 g/dL (32-36); Mean Corpuscular Volume 100.3 fL (80-94); Mean Platelet Vol. 9.8 fl (6.2-12.0); Monocyte# 0.64 X10^3/uL; Monocyte% 7.4 % (0-10); NRBC Flagged by Analyzer 0 % (0-5); Neutrophil # 6.37 X10^3/uL (2.7-7.7); Neutrophil % 73.7 % (47-70); POSITIVE DIFFERENTIAL YES; Platelet Count 222 K/mm3 (150-450); RBC Distribution Width CV 15.1 % (11.6-14.6); Red Blood Count 3.09 M/mm3 (4.6-6.2); White Blood Count 8.6 K/mm3 (4.4-11.0)
[2022-08-05 06:55] LABS: Differential Indicated SCAN CRITERIA MET
--- NOTE | 2022-08-05 07:43 | PN.SURG_ITS ---
Subjective Subjective Patient is having small amount of flatus and she was able to remove removed yesterday. Patient is still taking regular pain meds Objective Data Objective Data Vital Signs: Vital Signs Temp Pulse Resp BP Pulse Ox O2 Del Method O2 Flow Rate 98.7 F 90 16 111/74 92 Room Air 2 08/05/22 06:30 08/05/22 06:30 08/05/22 06:30 08/05/22 06:30 08/05/22 06:30 08/05/22 06:30 08/02/22 00:54 Oxygen Flow Rate (L/min) 2 Oxygen Delivery Method Room Air Weight: 178 lb Body Mass Index (BMI) 26.9 Intake & Output: Intake and Output for Last 24 Hours 08/03/22 08/04/22 08/05/22 23:59 23:59 23:59 Intake Total 2449.5 / 2449.5 2752 / 2752 670 / 670 Output Total 680 / 700 295 / 295 15 / 15 Balance 1769.5 / 1749.5 2457 / 2457 655 / 655 Lab / Micro Data Result Diagrams: 08/05/22 06:10 08/04/22 04:55 Labs: Laboratory Results - last 24 hr 08/05/22 06:10: WBC 8.6, RBC 3.09 L, Hgb 10.5 L, Hct 31.0 L, MCV 100.3 H, MCH 34.0 H, MCHC 33.9, RDW Std Deviation 56.0 H, RDW Coeff of Son 15.1 H, Plt Count 222, MPV 9.8, Immature Gran % (Auto) 0.500, Neut % (Auto) 73.7 H, Lymph % (Auto) 5.9 L, [place] % (Auto) 7.4, Eos % (Auto) 12.2 H, Baso % (Auto) 0.3, Absolute Neuts (auto) 6.4, Absolute Lymphs (auto) 0.51 L, Nucleated RBC % 0 Rhythm Strip Rhythm Strip: Sinus Tach Rate: 120 Ectopy: None Physical Exam Const oriented x3 and no apparent distress Constitutional Narrative: NG in place Resp normal respiratory effort Cardio regular rate GI GI Narrative: Soft, appropriately tender to palpation near incision, faint erythema around incision lucille removed, ZEYNEP serous Assessment & Plan Assessment/Plan (1) Small bowel obstruction due to adhesions: (2) S/P small bowel resection: PLAN: Plan Await increased bowel function-- okay for ice chips Continue pain control, patient is taking regular pain meds?did encourage p.o. over IV Encourage out of bed to chair and ambulation Priscilla Jarvis M.D. Pager: [phone] [facility] [address] [place] [address], [facility], [address] [place] [address] Office: [phone]
[2022-08-05 08:11] LABS: Differential Comment SCANNED
[2022-08-05] MEDS: HYDROmorphone 1 MG/ML Syringe IV ×2 (09:06→14:24)
[2022-08-05] MEDS: LEVOTHYROXINE SODIUM 100 MCG VIAL 50 MCG IV (09:25)
[2022-08-05 10:00] VITALS: BP 130/80; PULSE 95; RESP 18; TEMP 36.9; O2SAT 92
--- NOTE | 2022-08-05 11:00 | NURSING ---
Update given to Alexi, Pts sister and BENNY.
[2022-08-05 14:35] VITALS: BP 139/80; PULSE 97; RESP 18; TEMP 37.1; O2SAT 95
--- NOTE | 2022-08-05 18:42 | PN.HOSP_ITS ---
Reason for Visit Reason for Visit: Diagnoses Hypomagnesemia (07/31/22) Dehydration (07/31/22) Intestinal adhesions [bands], unspecified as to partial versus complete obstruction (07/31/22) Partial intestinal obstruction, unspecified as to cause (07/31/22) Other specified abnormal findings of blood chemistry (07/31/22) Acquired absence of other specified parts of digestive tract (07/31/22) Subjective Subjective Patient was seen and examined today, his NG tube has been removed, patient is still not had a bowel movement or significant flatus. Objective Data Objective Data Vital Signs: Vital Signs Temp Pulse Resp BP Pulse Ox O2 Del Method O2 Flow Rate 98.7 F 97 18 139/80 H 95 Room Air 2 08/05/22 14:35 08/05/22 14:35 08/05/22 14:35 08/05/22 14:35 08/05/22 14:35 08/05/22 14:35 08/02/22 00:54 Oxygen Flow Rate (L/min) 2 Oxygen Delivery Method Room Air Weight: 80.739 kg Body Mass Index (BMI) 26.9 Intake & Output: Intake and Output for Last 24 Hours 08/03/22 08/04/22 08/05/22 23:59 23:59 23:59 Intake Total 2449.5 / 2449.5 2752 / 2752 1647.5 / 1647.5 Output Total 680 / 700 295 / 295 15 / 15 Balance 1769.5 / 1749.5 2457 / 2457 1632.5 / 1632.5 Lab / Micro Data Result Diagrams: 08/05/22 06:10 08/04/22 04:55 Labs: Laboratory Results - last 24 hr 08/05/22 06:10: WBC 8.6, RBC 3.09 L, Hgb 10.5 L, Hct 31.0 L, MCV 100.3 H, MCH 34.0 H, MCHC 33.9, RDW Std Deviation 56.0 H, RDW Coeff of Son 15.1 H, Plt Count 222, MPV 9.8, Immature Gran % (Auto) 0.500, Neut % (Auto) 73.7 H, Lymph % (Auto) 5.9 L, [place] % (Auto) 7.4, Eos % (Auto) 12.2 H, Baso % (Auto) 0.3, Absolute Neuts (auto) 6.4, Absolute Lymphs (auto) 0.51 L, Nucleated RBC % 0, Differential Comment SCANNED Rhythm Strip Rhythm Strip: Sinus Tach Rate: 120 Ectopy: None Physical Exam Const alert, oriented x3 and no apparent distress General Appearance: cooperative, well kempt and well developed Orientation / Consciousness: awake, oriented to person, oriented to place and oriented to time HEENT normocephalic, head/scalp atraumatic and moist oral mucous membranes Eyes PERRL, EOMs intact bilaterally and conjunctivae normal Neck supple, no JVD and thyroid normal General: trachea midline Resp normal respiratory effort, no retractions, no use of accessory muscles and clear to auscultation bilaterally Auscultation: Negative for rales, rhonchi or wheezes Cardio regular rate, regular rhythm, S1 normal heart sound, S2 normal heart sound, no murmurs, no rub and no gallops GI GI Narrative: Abdomen appears to be moderately distended and tympanic, it is moderately tender to palpation, bowel sounds are diminished Auscultation: hypoactive bowel sounds Extremity no clubbing, cyanosis or edema Skin no rashes or lesions noted General Skin Exam: no breakdown Neuro oriented x3, CN's II-XII intact bilaterally, moves all extremities, no focal motor deficits and no sensory deficits noted Sensorium / Orientation: awake, alert, oriented to person, oriented to place and oriented to time Speech: speech normal Psych affect normal Assessment & Plan Assessment/Plan (1) Small bowel obstruction due to adhesions: PLAN: Plan 1. Small bowel obstruction secondary to adhesions-postop day #4 exploratory laparotomy with small bowel resection-continue IV antibiotics presently, general surgery is participating in his care, patient's NG tube is out at this time, he is still n.p.o. #2 hypothyroidism-patient is on IV Synthroid #3 BPH-patient is on Flomax as an outpatient, this is being held due to his n.p.o. status. Total clinical time spent by myself addressing the patient's medical issues, reviewing the data, and collaborating with patient's care team: 25 minutes Charges/Coding Visit Charges Inpatient E&M: 77171 Subs Hosp L2
[2022-08-05] MEDS: Tamsulosin HCl 0.4 MG Capsule PO (19:51)
[2022-08-05 19:55] VITALS: BP 122/68; PULSE 97; RESP 18; TEMP 37; O2SAT 97
[2022-08-05 21:14] VITALS: BP 140/85; PULSE 96; RESP 16; TEMP 36.9; O2SAT 94
[2022-08-05] MEDS: oxyCODONE 5 MG Tablet PO (23:22)
[2022-08-06 03:17] VITALS: BP 110/67; PULSE 96; RESP 16; TEMP 36.7; O2SAT 93
[2022-08-06] MEDS: oxyCODONE 5 MG Tablet PO ×3 (03:37→21:01)
[2022-08-06] MEDS: Lactated Ringers 1,000 ML 75 ML IV ×2 (03:43→14:20)
[2022-08-06 06:00] VITALS: BMI 27.1
[2022-08-06 06:19] LABS: Absolute Lymphocyte Count 0.74 X10^3/uL (0.83-4.51); Basophil# 0.03 X10^3/uL; Basophil% 0.3 % (0-1); Eosinophil# 0.92 X10^3/uL; Eosinophils% 10.6 % (0-5); Hematocrit 30.3 % (40-54); Lymphocyte # 0.74 X10^3/ul (0.83-4.51); Lymphocyte % 8.6 % (19-41); Mean Corpuscular Hgb 33.3 pg (27.0-32.0); Mean Platelet Vol. 9.8 fl (6.2-12.0); Monocyte# 0.85 X10^3/uL; Monocyte% 9.8 % (0-10); NRBC Flagged by Analyzer 0 % (0-5); Neutrophil # 6.03 X10^3/uL (2.7-7.7); Neutrophil % 69.8 % (47-70); Platelet Count 232 K/mm3 (150-450); RBC Distribution Width CV 15.3 % (11.6-14.6); RBC Distribution Width SD 57.2 fl (35.1-43.9); White Blood Count 8.7 K/mm3 (4.4-11.0)
--- NOTE | 2022-08-06 07:52 | PN.SURG_ITS ---
Objective Data Objective Data Vital Signs: Vital Signs Temp Pulse Resp BP Pulse Ox O2 Del Method O2 Flow Rate 98.1 F 96 16 110/67 93 Room Air 2 08/06/22 03:17 08/06/22 03:17 08/06/22 03:17 08/06/22 03:17 08/06/22 03:17 08/06/22 03:17 08/02/22 00:54 Oxygen Flow Rate (L/min) 2 Oxygen Delivery Method Room Air Weight: 178 lb 5.663 oz Body Mass Index (BMI) 27.1 Intake & Output: Intake and Output for Last 24 Hours 08/04/22 08/05/22 08/06/22 23:59 23:59 23:59 Intake Total 2752 / 2752 1647.5 / 1647.5 1050 / 1050 Output Total 295 / 295 315 / 315 Balance 2457 / 2457 1332.5 / 1332.5 1050 / 1050 Lab / Micro Data Result Diagrams: 08/06/22 05:55 08/04/22 04:55 Labs: Laboratory Results - last 24 hr 08/05/22 06:10: Differential Comment SCANNED 08/06/22 05:55: WBC 8.7, RBC 3.00 L, Hgb 10.0 L, Hct 30.3 L, MCV 101.0 H, MCH 33.3 H, MCHC 33.0, RDW Std Deviation 57.2 H, RDW Coeff of Son 15.3 H, Plt Count 232, MPV 9.8, Immature Gran % (Auto) 0.900, Neut % (Auto) 69.8, Lymph % (Auto) 8.6 L, [place] % (Auto) 9.8, Eos % (Auto) 10.6 H, Baso % (Auto) 0.3, Absolute Neuts (auto) 6.0, Absolute Lymphs (auto) 0.74 L, Nucleated RBC % 0 Rhythm Strip Rhythm Strip: Sinus Tach Rate: 120 Ectopy: None Physical Exam Const oriented x3 and no apparent distress Resp normal respiratory effort Cardio regular rate GI GI Narrative: Soft, appropriately tender to palpation near incision, erythema resolved near incision- still some sang drainage on dressing, ZEYNEP serous Assessment & Plan Assessment/Plan (1) Small bowel obstruction due to adhesions: (2) S/P small bowel resection: PLAN: Plan Await BM--ok for clears- do not advance until BM Continue pain control, patient is taking regular pain meds?did stop IV and only taking PO will give suppository as he probably has some constipation from narotics and did have last BM thursday before admit erythema near incision improved-continue zosyn. Encourage out of bed to chair and ambulation Priscilla Jarvis M.D. Pager: [phone] [facility] [address] [place] [address], [facility], [address] [place] [address] Office: [phone]
[2022-08-06 10:11] VITALS: O2SAT 94
[2022-08-06 10:23] VITALS: BP 126/76; PULSE 90; RESP 16; TEMP 36.6; O2SAT 96
[2022-08-06] MEDS: Bisacodyl 10 MG Suppository RC (10:27)
[2022-08-06] MEDS: Ensure Clear 120 ML Liquid PO ×2 (13:26→17:48)
[2022-08-06] MEDS: Acetaminophen 325 MG Tablet 650 MG PO (13:26)
[2022-08-06 15:28] VITALS: BP 151/81; PULSE 94; RESP 16; TEMP 37; O2SAT 93
--- NOTE | 2022-08-06 17:01 | PCM.PN.HOSP ---
Reason for Visit Reason for Visit: Diagnoses Hypomagnesemia (07/31/22) Dehydration (07/31/22) Intestinal adhesions [bands], unspecified as to partial versus complete obstruction (07/31/22) Partial intestinal obstruction, unspecified as to cause (07/31/22) Other specified abnormal findings of blood chemistry (07/31/22) Acquired absence of other specified parts of digestive tract (07/31/22) Subjective Subjective Patient was seen and examined today, nursing states he has had some small bowel movements, I gave him a Dulcolax suppository this morning. Talked briefly with general surgery about his care. Objective Data Objective Data Vital Signs: Vital Signs Temp Pulse Resp BP Pulse Ox O2 Del Method O2 Flow Rate 98.6 F 94 16 151/81 H 93 Room Air 2 08/06/22 15:28 08/06/22 15:28 08/06/22 15:28 08/06/22 15:28 08/06/22 15:28 08/06/22 15:28 08/02/22 00:54 Oxygen Flow Rate (L/min) 2 Oxygen Delivery Method Room Air Weight: 80.9 kg Body Mass Index (BMI) 27.1 Intake & Output: Intake and Output for Last 24 Hours 08/04/22 08/05/22 08/06/22 23:59 23:59 23:59 Intake Total 2752 / 2752 1647.5 / 1647.5 1898.75 / 1898.75 Output Total 295 / 295 315 / 315 Balance 2457 / 2457 1332.5 / 1332.5 1898.75 / 1898.75 Lab / Micro Data Result Diagrams: 08/06/22 05:55 08/04/22 04:55 Labs: Laboratory Results - last 24 hr 08/06/22 05:55: WBC 8.7, RBC 3.00 L, Hgb 10.0 L, Hct 30.3 L, MCV 101.0 H, MCH 33.3 H, MCHC 33.0, RDW Std Deviation 57.2 H, RDW Coeff of Son 15.3 H, Plt Count 232, MPV 9.8, Immature Gran % (Auto) 0.900, Neut % (Auto) 69.8, Lymph % (Auto) 8.6 L, [place] % (Auto) 9.8, Eos % (Auto) 10.6 H, Baso % (Auto) 0.3, Absolute Neuts (auto) 6.0, Absolute Lymphs (auto) 0.74 L, Nucleated RBC % 0 Rhythm Strip Rhythm Strip: Sinus Tach Rate: 120 Ectopy: None Physical Exam Narrative alert, oriented x3 and no apparent distress General Appearance: cooperative, well kempt and well developed Orientation / Consciousness: awake, oriented to person, oriented to place and oriented to time HEENT normocephalic, head/scalp atraumatic and moist oral mucous membranes Eyes PERRL, EOMs intact bilaterally and conjunctivae normal Neck supple, no JVD and thyroid normal General: trachea midline Resp normal respiratory effort, no retractions, no use of accessory muscles and clear to auscultation bilaterally Auscultation: Negative for rales, rhonchi or wheezes Cardio regular rate, regular rhythm, S1 normal heart sound, S2 normal heart sound, no murmurs, no rub and no gallops GI GI Narrative: Abdomen appears to be moderately distended and tympanic, it is moderately tender to palpation, bowel sounds are diminished Auscultation: hypoactive bowel sounds Extremity no clubbing, cyanosis or edema Skin no rashes or lesions noted General Skin Exam: no breakdown Neuro oriented x3, CN's II-XII intact bilaterally, moves all extremities, no focal motor deficits and no sensory deficits noted Sensorium / Orientation: awake, alert, oriented to person, oriented to place and oriented to time Speech: speech normal Psych affect normal Assessment & Plan Assessment/Plan (1) Small bowel obstruction due to adhesions: PLAN: Plan 1. Small bowel obstruction secondary to adhesions-postop day #5 exploratory laparotomy with small bowel resection-continue IV antibiotics presently, general surgery is participating in his care, patient's NG tube is out at this time, he is currently on liquids #2 hypothyroidism-patient is on p.o. Synthroid, I will increase his dosage #3 BPH-patient is on Flomax Total clinical time spent by myself addressing the patient's medical issues, reviewing the data, and collaborating with patient's care team: 25 minutes Charges/Coding Visit Charges Inpatient E&M: 19994 Subs Hosp L2
[2022-08-06] MEDS: Tamsulosin HCl 0.4 MG Capsule PO (17:50)
[2022-08-06 21:00] VITALS: BP 123/79; PULSE 88; RESP 16; TEMP 36.8; O2SAT 93
[2022-08-07] MEDS: oxyCODONE 5 MG Tablet PO ×5 (01:11→23:02)
[2022-08-07 03:20] VITALS: BP 133/85; PULSE 96; RESP 18; TEMP 37.1; O2SAT 93
[2022-08-07] MEDS: Levothyroxine 25 MCG TABLET PO (05:19)
[2022-08-07] MEDS: Levothyroxine 100 MCG Tablet PO (05:19)
[2022-08-07 06:00] VITALS: BMI 26.9
--- NOTE | 2022-08-07 08:16 | PCM.PN.SRG ---
Objective Data Objective Data Vital Signs: Vital Signs Temp Pulse Resp BP Pulse Ox O2 Del Method O2 Flow Rate 98.8 F 96 18 133/85 H 93 Room Air 2 08/07/22 03:20 08/07/22 03:20 08/07/22 03:20 08/07/22 03:20 08/07/22 03:20 08/07/22 03:20 08/02/22 00:54 Oxygen Flow Rate (L/min) 2 Oxygen Delivery Method Room Air Weight: 178 lb 2.136 oz Body Mass Index (BMI) 26.9 Intake & Output: Intake and Output for Last 24 Hours 08/05/22 08/06/22 08/07/22 23:59 23:59 23:59 Intake Total 1647.5 / 1647.5 1948.75 / 1948.75 50 / 50 Output Total 315 / 315 800 / 800 Balance 1332.5 / 1332.5 1948.75 / 1448.75 -750 / -750 Lab / Micro Data Result Diagrams: 08/06/22 05:55 08/04/22 04:55 Rhythm Strip Rhythm Strip: Sinus Tach Rate: 120 Ectopy: None Assessment & Plan Assessment/Plan (1) Small bowel obstruction due to adhesions: (2) S/P small bowel resection: PLAN: Plan Await BM--ok for clears- do not advance until BM?patient agreeable to another suppository this afternoon. Continue pain control, has been taking less pain meds and previous is only taking one of the Oxy IR's when needed. Incision erythema and drainage worse compared to yesterday. Did take out a few huy and do wet-to-dry's in 2 locations. We will plan to do this 3 times daily. Continue Zosyn. Encourage out of bed to chair and ambulation Priscilla Jarvis M.D. Pager: [phone] [facility] [address] [place] [address], [facility], [address] [place] [address] Office: [phone]
[2022-08-07] MEDS: Acetaminophen 325 MG Tablet 650 MG PO (08:47)
[2022-08-07 08:54] VITALS: BP 126/78; PULSE 92; RESP 16; TEMP 36.4; O2SAT 94
[2022-08-07] MEDS: Ensure Clear 120 ML Liquid PO ×4 (09:06→22:15)
[2022-08-07] MEDS: 0.9% Saline Lock 10 ML Syringe IV (09:06)
[2022-08-07 15:20] VITALS: BP 113/76; PULSE 85; RESP 18; TEMP 36.7; O2SAT 94
--- NOTE | 2022-08-07 15:29 | WOUNDNOTE ---
wound photo: abdomen
--- NOTE | 2022-08-07 18:00 | PN.HOSP_ITS ---
Reason for Visit Reason for Visit: Diagnoses Hypomagnesemia (07/31/22) Dehydration (07/31/22) Intestinal adhesions [bands], unspecified as to partial versus complete obstruction (07/31/22) Partial intestinal obstruction, unspecified as to cause (07/31/22) Other specified abnormal findings of blood chemistry (07/31/22) Acquired absence of other specified parts of digestive tract (07/31/22) Subjective Subjective Patient was seen and examined today, he remains on clear liquids due to lack of significant bowel movements. Patient has no complaints of abdominal discomfort at rest. Objective Data Objective Data Vital Signs: Vital Signs Temp Pulse Resp BP Pulse Ox O2 Del Method O2 Flow Rate 98.1 F 85 18 113/76 94 Room Air 2 08/07/22 15:20 08/07/22 15:20 08/07/22 15:20 08/07/22 15:20 08/07/22 15:20 08/07/22 15:20 08/02/22 00:54 Oxygen Flow Rate (L/min) 2 Oxygen Delivery Method Room Air Weight: 80.8 kg Body Mass Index (BMI) 26.9 Intake & Output: Intake and Output for Last 24 Hours 08/05/22 08/06/22 08/07/22 23:59 23:59 23:59 Intake Total 1647.5 / 1647.5 1948.75 / 1948.75 100 / 100 Output Total 315 / 315 800 / 800 Balance 1332.5 / 1332.5 1948.75 / 1448.75 -700 / -700 Lab / Micro Data Result Diagrams: 08/06/22 05:55 08/04/22 04:55 Rhythm Strip Rhythm Strip: Sinus Tach Rate: 120 Ectopy: None Physical Exam Narrative alert, oriented x3 and no apparent distress General Appearance: cooperative, well kempt and well developed Orientation / Consciousness: awake, oriented to person, oriented to place and oriented to time HEENT normocephalic, head/scalp atraumatic and moist oral mucous membranes Eyes PERRL, EOMs intact bilaterally and conjunctivae normal Neck supple, no JVD and thyroid normal General: trachea midline Resp normal respiratory effort, no retractions, no use of accessory muscles and clear to auscultation bilaterally Auscultation: Negative for rales, rhonchi or wheezes Cardio regular rate, regular rhythm, S1 normal heart sound, S2 normal heart sound, no murmurs, no rub and no gallops GI GI Narrative: Abdomen appears to be moderately distended and tympanic, it is moderately tender to palpation, bowel sounds are diminished Auscultation: hypoactive bowel sounds Extremity no clubbing, cyanosis or edema Skin no rashes or lesions noted General Skin Exam: no breakdown Neuro oriented x3, CN's II-XII intact bilaterally, moves all extremities, no focal motor deficits and no sensory deficits noted Sensorium / Orientation: awake, alert, oriented to person, oriented to place and oriented to time Speech: speech normal Psych affect normal Assessment & Plan Assessment/Plan (1) S/P small bowel resection: (2) Small bowel obstruction due to adhesions: PLAN: Plan 1. Small bowel obstruction secondary to adhesions-postop day #6 exploratory laparotomy with small bowel resection-continue IV antibiotics presently, general surgery is participating in his care, he is currently on liquids #2 hypothyroidism-patient is on p.o. Synthroid #3 BPH-patient is on Flomax Total clinical time spent by myself addressing the patient's medical issues, reviewing the data, and collaborating with patient's care team: 25 minutes Charges/Coding Visit Charges Inpatient E&M: 67030 [facility] Hosp L1
[2022-08-07] MEDS: Tamsulosin HCl 0.4 MG Capsule PO (18:41)
[2022-08-07 21:00] VITALS: BP 127/84; PULSE 94; RESP 18; TEMP 37.3; O2SAT 96
[2022-08-08 02:18] VITALS: BP 117/73; PULSE 91; RESP 18; TEMP 36.6; O2SAT 93
[2022-08-08] MEDS: Levothyroxine 100 MCG Tablet PO (05:20)
[2022-08-08] MEDS: Levothyroxine 25 MCG TABLET PO (05:20)
[2022-08-08 05:21] VITALS: BMI 25.3
[2022-08-08] MEDS: oxyCODONE 5 MG Tablet PO ×4 (06:29→23:01)
--- NOTE | 2022-08-08 08:13 | PN.SURG_ITS ---
Subjective Subjective Patient states that he had a small bowel movement, wet-to-dry dressings 3 times daily to incision Objective Data Objective Data Vital Signs: Vital Signs Temp Pulse Resp BP Pulse Ox O2 Del Method O2 Flow Rate 97.8 F 91 18 117/73 93 Room Air 2 08/08/22 02:18 08/08/22 02:18 08/08/22 02:18 08/08/22 02:18 08/08/22 02:18 08/08/22 02:18 08/02/22 00:54 Oxygen Flow Rate (L/min) 2 Oxygen Delivery Method Room Air Weight: 167 lb 7 oz Body Mass Index (BMI) 25.3 Intake & Output: Intake and Output for Last 24 Hours 08/06/22 08/07/22 08/08/22 23:59 23:59 23:59 Intake Total 1948.75 / 1948.75 750 / 750 50 / 50 Output Total 1000 / 1000 580 / 580 Balance 1948.75 / 1448.75 -250 / -250 -530 / -530 Lab / Micro Data Result Diagrams: 08/06/22 05:55 08/04/22 04:55 Rhythm Strip Rhythm Strip: Sinus Tach Rate: 120 Ectopy: None Physical Exam Const oriented x3 and no apparent distress Resp normal respiratory effort Cardio regular rate GI GI Narrative: Soft, appropriately tender to palpation near incision, erythema improving near incision- still some sang drainage on dressing, ZEYNEP serous Assessment & Plan Assessment/Plan (1) Small bowel obstruction due to adhesions: (2) S/P small bowel resection: PLAN: Plan Await BM--ok for fulls- do not advance until further BM?plan for suppository Continue pain control, has been taking less pain meds and previous is only taking one of the Oxy IR's when needed. wet to dry TID at incision in 2 areas. Continue Zosyn. Encourage out of bed to chair and ambulation Priscilla Jarvis M.D. Pager: [phone] [facility] [address] [place] [address], [facility], [address] [place] [address] Office: [phone]
[2022-08-08 10:30] VITALS: BP 113/76; PULSE 89; RESP 15; TEMP 36.9; O2SAT 97
[2022-08-08] MEDS: Ensure Clear 120 ML Liquid PO ×2 (13:21→17:18)
--- NOTE | 2022-08-08 13:56 | CASEMGMT ---
Received tc from [facility], provided update on pt status. Noted pt incision is . Pt does not have any other insurance. Questioned David on possibility of HHC. He gave email address for the request to go to which is [facility] - . He states the request can be sent and then they will send info that is needed back prior to approval. JUSTICE CM to discuss wound care with pt to see if this will be needed or not at mo.
[2022-08-08 15:28] VITALS: BP 119/74; PULSE 86; RESP 15; TEMP 37.2; O2SAT 93
[2022-08-08] MEDS: Tamsulosin HCl 0.4 MG Capsule PO (17:18)
--- NOTE | 2022-08-08 18:03 | PCM.PN.HOSP ---
Reason for Visit Reason for Visit: Diagnoses Hypomagnesemia (07/31/22) Dehydration (07/31/22) Intestinal adhesions [bands], unspecified as to partial versus complete obstruction (07/31/22) Partial intestinal obstruction, unspecified as to cause (07/31/22) Other specified abnormal findings of blood chemistry (07/31/22) Acquired absence of other specified parts of digestive tract (07/31/22) Subjective Subjective Patient was seen and examined today, I did talk with general surgery about his care, patient has been lying in bed during my visits all this week, I asked him to get up and walk more, in my discussion with general surgery, I discussed the administration of some lactulose and they were agreeable to 1 dose. Objective Data Objective Data Vital Signs: Vital Signs Temp Pulse Resp BP Pulse Ox O2 Del Method O2 Flow Rate 98.9 F 86 15 119/74 93 Room Air 2 08/08/22 15:28 08/08/22 15:28 08/08/22 15:28 08/08/22 15:28 08/08/22 15:28 08/08/22 15:28 08/02/22 00:54 Oxygen Flow Rate (L/min) 2 Oxygen Delivery Method Room Air Weight: 75.948 kg Body Mass Index (BMI) 25.3 Intake & Output: Intake and Output for Last 24 Hours 08/06/22 08/07/22 08/08/22 23:59 23:59 23:59 Intake Total 1948.75 / 1948.75 750 / 750 150 / 150 Output Total 1000 / 1000 582 / 582 Balance 1948.75 / 1448.75 -250 / -250 -432 / -432 Lab / Micro Data Result Diagrams: 08/06/22 05:55 08/04/22 04:55 Rhythm Strip Rhythm Strip: Sinus Tach Rate: 120 Ectopy: None Physical Exam Narrative alert, oriented x3 and no apparent distress General Appearance: cooperative, well kempt and well developed Orientation / Consciousness: awake, oriented to person, oriented to place and oriented to time HEENT normocephalic, head/scalp atraumatic and moist oral mucous membranes Eyes PERRL, EOMs intact bilaterally and conjunctivae normal Neck supple, no JVD and thyroid normal General: trachea midline Resp normal respiratory effort, no retractions, no use of accessory muscles and clear to auscultation bilaterally Auscultation: Negative for rales, rhonchi or wheezes Cardio regular rate, regular rhythm, S1 normal heart sound, S2 normal heart sound, no murmurs, no rub and no gallops GI GI Narrative: Abdomen appears to be moderately distended and tympanic, it is moderately tender to palpation, bowel sounds are diminished Auscultation: hypoactive bowel sounds Extremity no clubbing, cyanosis or edema Skin no rashes or lesions noted General Skin Exam: no breakdown Neuro oriented x3, CN's II-XII intact bilaterally, moves all extremities, no focal motor deficits and no sensory deficits noted Sensorium / Orientation: awake, alert, oriented to person, oriented to place and oriented to time Speech: speech normal Psych affect normal Assessment & Plan Assessment/Plan (1) S/P small bowel resection: (2) Small bowel obstruction due to adhesions: PLAN: Plan 1. Small bowel obstruction secondary to adhesions-postop day #7 exploratory laparotomy with small bowel resection-continue IV antibiotics presently, general surgery is participating in his care, he is currently on liquids, I have encouraged him again to walk more, he was given a dose of lactulose today. #2 hypothyroidism-patient is on p.o. Synthroid #3 BPH-patient is on Flomax Total clinical time spent by myself addressing the patient's medical issues, reviewing the data, and collaborating with patient's care team: 25 minutes Charges/Coding Visit Charges Inpatient E&M: 43795 [facility] Hosp L1
[2022-08-08 21:00] VITALS: BP 117/78; PULSE 87; RESP 18; TEMP 37.1; O2SAT 97
[2022-08-09 05:15] VITALS: BP 107/68; PULSE 92; RESP 18; TEMP 37; O2SAT 100
[2022-08-09] MEDS: Levothyroxine 100 MCG Tablet PO (05:16)
[2022-08-09] MEDS: Levothyroxine 25 MCG TABLET PO (05:16)
[2022-08-09 05:24] VITALS: BMI 25.5
--- NOTE | 2022-08-09 07:37 | PN.SURG_ITS ---
Subjective Subjective Patient had a formed bowel movement and did decline any further suppositories as well as the lactulose which offered yesterday. Patient is tolerating full liquids. Patient is having plain packing to 2 areas of his incision 3 times a day Objective Data Objective Data Vital Signs: Vital Signs Temp Pulse Resp BP Pulse Ox O2 Del Method O2 Flow Rate 98.6 F 92 18 107/68 100 Room Air 2 08/09/22 05:15 08/09/22 05:15 08/09/22 05:15 08/09/22 05:15 08/09/22 05:15 08/09/22 05:15 08/02/22 00:54 Oxygen Flow Rate (L/min) 2 Oxygen Delivery Method Room Air Weight: 168 lb 8 oz Body Mass Index (BMI) 25.5 Intake & Output: Intake and Output for Last 24 Hours 08/07/22 08/08/22 08/09/22 23:59 23:59 23:59 Intake Total 750 / 750 450 / 450 50 / 50 Output Total 1000 / 1000 582 / 582 350 / 350 Balance -250 / -250 -132 / -132 -300 / -300 Lab / Micro Data Result Diagrams: 08/06/22 05:55 08/04/22 04:55 Rhythm Strip Rhythm Strip: Sinus Tach Rate: 120 Ectopy: None Physical Exam Const oriented x3 and no apparent distress Resp normal respiratory effort Cardio regular rate GI GI Narrative: Soft, appropriately tender to palpation near incision, erythema improving near incision-packing in place with some purulent drainage on dressing, ZEYNEP serous?ZEYNEP removed at bedside Assessment & Plan Assessment/Plan (1) Small bowel obstruction due to adhesions: (2) S/P small bowel resection: PLAN: Plan Patient did have a medium sized bowel movement advance to low residue diet?if tolerates okay to DC Continue pain control Patient has been having packing tape will change to wet-to-dry's 3 times daily for wound. Plan for patient to go home on Augmentin x5 days on DC. Patient is to follow-up Thursday or Thursday in the office. Encourage out of bed to chair and ambulation Priscilla Jarvis M.D. Pager: [phone] [facility] [address] [place] [address], [facility], [address] [place] [address] Office: [phone]
--- NOTE | 2022-08-09 08:10 | DCINST_ITS ---
Discharge Instructions Diet Discharge Diet: - (low residue) Activity Discharge Activity: May Shower Lifting Restrictions: no lifting >20 lb x 2 weeks then no lifting >40 lbs for 2 more weeks Dressing / Incision Call your doctor if your incision/area has: Increased Pain/ Swelling, Increased Redness and Foul Smelling Discharge Call your doctor if you observe: Fever of 101 or Higher Cleanse incision/area with: Normal Saline Additional Dressing/Incision Instructions:: Wet to dry dressings to 2 areas of the main incision; 3 times a day--clean with 10 cc of normal saline before dressing--use syringe to irrigate Follow Up Care Please Follow Up With: Priscilla Jarvis MD When: Call the office for a follow-up appointment early this week Thursday or Thursday, will likely be removing additional huy. Test Results: Test results from this visit will be discussed in further detail at your follow- up appointment, if applicable. Discharge Plan Admission Admit Date/Time: 07/31/22 16:40 Attending Provider: Vaibhav Grimes Primary Care Provider: [facility],[place] Consulting Providers: Jose Angel Raphael ; Priscilla Jarvis ; Destiny Murray Discharge Orders/Prescriptions Prescriptions: New oxycodone-acetaminophen 5-325 mg tablet 1 - 2 tab PO Q6H PRN (Reason: pain) 3 Days Qty: 14 0RF amoxicillin-pot clavulanate 875-125 mg tablet 1 tab PO BID Qty: 10 0RF No Action levothyroxine 100 MCG tablet 100 mcg PO DAILY aspirin 81 MG tablet,chewable 81 mg PO DAILY ibuprofen 800 MG tablet 800 mg PO Q8H PRN PRN (Reason: Pain) Qty: 20 0RF tamsulosin [Flomax] 0.4 mg Capsule 0.4 mg PO DAILY Referrals / Follow Up: [facility],[place] [Primary Care Provider] -
[2022-08-09 10:08] VITALS: BP 118/74; PULSE 94; RESP 18; TEMP 36.7; O2SAT 93
--- NOTE | 2022-08-09 10:57 | PCM.DC ---
Discharge Instructions Diet Discharge Diet: - (low residue) Dressing / Incision Call your doctor if your incision/area has: Increased Pain/ Swelling, Increased Redness and Foul Smelling Discharge Call your doctor if you observe: Fever of 101 or Higher Cleanse incision/area with: Normal Saline Additional Dressing/Incision Instructions:: Wet to dry dressings to 2 areas of the main incision; 3 times a day--clean with 10 cc of normal saline before dressing--use syringe to irrigate Follow Up Care Please Follow Up With: Priscilla Jarvis MD Test Results: Test results from this visit will be discussed in further detail at your follow-up appointment, if applicable. Discharge Plan Admission Admit Date/Time: 07/31/22 16:40 Primary Reason for Your Visit: small bowel obstruction Attending Provider: Vaibahv Grimes Primary Care Provider: [place], [place] Consulting Providers: Jose Angel Raphael ; Priscilla Jarvis ; Destiny Murray Discharge Orders/Prescriptions Prescriptions: New oxycodone-acetaminophen 5-325 mg tablet 1 - 2 tab PO Q6H PRN (Reason: pain) 3 Days Qty: 14 0RF amoxicillin-pot clavulanate 875-125 mg tablet 1 tab PO BID Qty: 10 0RF Continued levothyroxine 100 MCG tablet 100 mcg PO DAILY aspirin 81 MG tablet,chewable 81 mg PO DAILY ibuprofen 800 MG tablet 800 mg PO Q8H PRN PRN (Reason: Pain) Qty: 20 0RF tamsulosin [Flomax] 0.4 mg Capsule 0.4 mg PO DAILY Referrals / Follow Up: [facility],[place] [Primary Care Provider] -
--- NOTE | 2022-08-09 11:07 | CASEMGMT ---
Addendum entered by Meghan Coello 08/09/22 14:34: Received tc from pt nurse stating pt is interested in HHC now. Email sent to [place] for this to be set up. Nurse aware to let pt know the RN SHUBHAM will be in touch with him on Thursday regarding HHC. Addendum entered by Meghan Coello 08/09/22 11:40: JUSTICE JALLOH notified that pt does not have any money to afford his rx and he does not have rx [facility] other than [facility]. Completed rx assist. TC to [facility] pharmacy, spoke with Ladonna, they will bring meds to the room and she will review the rx assist. Received call back from Yusuf, the percocet cannot be covered and the cost is $15.88. Updated hospitalist and nurse. Original Note: Discussed pt care with hospitalist and nurse. JUSTICE JALLOH in to pt room, pt lying in bed with eyes closed and did not open eyes through entire conversation. Discussed wound care with pt, he states he will learn the wound care. He is aware that the nurse will review it with him. He has a signed rx on chart for supplies and pt nurse will send with supplies in room. Pt is aware that he will need to obtain. Discussed getting [facility] through the [facility]. Pt denies need for this. States I promise I will get it taken care of. He denies having someone else to learn. Discussed infection and importance of performing wound care as ordered. Pt verbalizes understanding. Pt states he does have transportation home and his friend will be here at 3:30pm. Discussed again with pt nurse.
--- NOTE | 2022-08-09 12:05 | PCM.DC.SUM ---
Providers Date of Admission: 07/31/22 Date of Discharge: 08/09/22 Primary Care Physician: [facility] Consultations 07/31/22 18:31 Consult: General Surgery Routine Consulting Provider: Priscilla Jarvis Reason for Consult: SBO EMERGENT Consult: No MD Notified: Yes Date Notified: 07/31/22 Time Notified: 18:03 Method of Notification: ED Physician Initiated 08/07/22 08:53 Consult: Onc/Wound/audio visual design engineer Routine Comment: Reason for Consult:: wound care Reason For Visit: PARTIAL SBO Diagnosis Discharge Diagnosis (1) Small bowel obstruction due to adhesions: Status: Acute Code(s): K56.50 - Intestinal adhesions [bands], unspecified as to partial versus complete obstruction (2) S/P small bowel resection: Status: Acute Code(s): Z90.49 - Acquired absence of other specified parts of digestive tract Plan 1. Small bowel obstruction secondary to adhesions-postop day #8 exploratory laparotomy with small bowel resection-continue IV antibiotics presently, general surgery is participating in his care, he is currently on liquids, I have encouraged him again to walk more, he was given a dose of lactulose today. #2 hypothyroidism-patient is on p.o. Synthroid #3 BPH-patient is on Flomax #4 suspected noncompliance with medications as outpatient Total clinical time spent by myself addressing the patient's medical issues, reviewing the data, and collaborating with patient's care team: 25 minutes Medications at Discharge Home Medications aspirin 81 mg chewable tablet 81 mg PO DAILY 12/01/17 ibuprofen 800 mg tablet 800 mg PO Q8H PRN PRN Pain #20 tabs 12/01/17 levothyroxine 100 mcg tablet 100 mcg PO DAILY 12/01/17 tamsulosin 0.4 mg capsule (Flomax) 0.4 mg PO DAILY 07/31/22 amoxicillin 875 mg-potassium clavulanate 125 mg tablet 1 tab PO BID #10 tabs 08/09/22 oxycodone-acetaminophen 5 mg-325 mg tablet 1 - 2 tab PO Q6H PRN pain 3 days #14 tabs 08/09/22 Hospital Course Operations - (Laparoscopic converted to laparotomy small bowel resection and anastomosis extensive lysis of adhesions, placement of ZEYNEP) Procedures None Summary of Care Provided Minutes Spent on Discharge: 31 Hospital Course: 62-year-old black male was seen in the emergency room at [facility] with complaints of abdominal pain, distention, constipation and no flatus. Work-up in the emergency room included a CT of the abdomen and pelvis-this showed a proximal small bowel occlusion at the level of the mid abdomen, and enlarged prostate, and hypodensities in the liver. White blood cell count was normal, patient's CHEM panel was unremarkable. Patient was admitted to the hospitalist service, NG tube was inserted and he was seen in consultation by general surgery. Patient was taken to surgery on 08/01/2022 for a laparoscopic converted to laparotomy, small bowel resection and anastomosis, extensive lysis of adhesions and placement of ZEYNEP drain. Patient's lab revealed the patient to be severely hypothyroid, IV Synthroid was given to the patient, his postoperative course was prolonged due to lack of bowel movement, this examiner noted the patient to spend his time in his room with the blinds down and in bed, he was encouraged to ambulate, duplex suppositories were given to stimulate the colon, patient refused to take lactulose ordered for him. On 08/09/2022, patient was seen and examined by general surgery, at that time he was advanced to a regular diet. I saw and examined the patient on that date: On examination he appeared in good health and spirits. Vital signs as documented. Skin warm and dry and without overt rashes. Neck without JVD, neck was supple, trachea midline, thyroid was normal. Lungs clear bilaterally, normal air movement was noted. Heart exam notable for regular rhythm, normal sounds and absence of murmurs, rubs or gallops. Abdomen unremarkable and without evidence of organomegaly, masses, or abdominal aortic enlargement. Bowel sounds are present, abdomen is not distended. Extremities nonedematous, no cyanosis was noted, no clubbing was noted. Neuro: Cranial nerves II through XII are grossly intact, no focal motor deficits were noted, sensation to light touch and pinprick intact, motor exam 5/5 throughout. Psych: Patient is alert and oriented x3, he does not appear anxious or depressed, he does not appear agitated. I had a discussion with the patient's sister by phone who stated that the patient has always been secretive about his medical care, she told this examiner that she would not be surprised if he had not been taking his thyroid medication. Patient was discharged home in stable condition on 08/09/2022, he was instructed to follow-up with Dr. Jravis on 08/11/2022. Patient refused to have home care set up by the [place]. Weight / BMI Weight Weight: 76.43 kg Body Mass Index (BMI) 25.5 ABG / Lab / Microbiology Data Result Diagrams: 08/06/22 05:55 08/04/22 04:55 D/C Instructions Discharge Diet: - (low residue) Call your doctor if your incision/area has: Increased Pain/ Swelling, Increased Redness and Foul Smelling Discharge Call your doctor if you observe: Fever of 101 or Higher Cleanse incision/area with: Normal Saline Additional Dressing/Incision Instructions: Wet to dry dressings to 2 areas of the main incision; 3 times a day--clean with 10 cc of normal saline before dressing--use syringe to irrigate Please Follow Up With: Priscilla Jarvis MD When: Call the office for a follow-up appointment early this week Thursday or Thursday, will likely be removing additional huy. Meaningful Use Info Meaningful Use Diagnoses (Choose all that apply): None applicable Discharge Plan Admission Admit Date/Time: 07/31/22 16:40 Primary Reason for Your Visit: small bowel obstruction Attending Provider: Vaibhav Grimes Primary Care Provider: [place] [place] Consulting Providers: Jose Angel Raphael ; Priscilla Jarvis ; Destiny Murray Discharge Orders/Prescriptions Prescriptions: New oxycodone-acetaminophen 5-325 mg tablet 1 - 2 tab PO Q6H PRN (Reason: pain) 3 Days Qty: 14 0RF amoxicillin-pot clavulanate 875-125 mg tablet 1 tab PO BID Qty: 10 0RF Continued levothyroxine 100 MCG tablet 100 mcg PO DAILY aspirin 81 MG tablet,chewable 81 mg PO DAILY ibuprofen 800 MG tablet 800 mg PO Q8H PRN PRN (Reason: Pain) Qty: 20 0RF tamsulosin [Flomax] 0.4 mg Capsule 0.4 mg PO DAILY Referrals / Follow Up: Priscilla Jarvis MD [Med Staff - Active Staff] - See Referral Note (on Thursday08/11/22-call for appointment) [facility],[place] [Primary Care Provider] - Disposition Disposition (needs filled in before D/C Order can be placed): Home, Self Care Charges/Coding Visit Charges Inpatient E&M: 06112 Disch Hosp >30min
[2022-08-09] MEDS: oxyCODONE 5 MG Tablet PO (15:08)
--- NOTE | 2022-08-09 15:20 | NURSING ---
This RN and patient have had several discussions about who will do his dressing changes. Patient states he has people that can do it and don't worry about me, I'll work it out. He mentioned his neighbor and evangelical friends would be able to help him. Dr. Jarvis to be updated.
[2022-08-09] MEDS: Tamsulosin HCl 0.4 MG Capsule PO (16:54)
[2022-08-09] MEDS: Bisacodyl 5 MG Tablet PO (16:54)
--- NOTE | 2022-08-09 17:05 | NURSING ---
Patient's ex-, Uma Culver, states she can be available to come to the hospital to learn how to do dressing changes for patient.
[2022-08-09 18:00] VITALS: BP 127/74; PULSE 89; RESP 18; TEMP 37.2; O2SAT 93
--- NOTE | 2022-08-09 18:03 | NURSING ---
Patient's ex here and she was taught how to do wet to dry dressings on abdominal wounds. She verbalized understanding and all questions were answered.
[2022-08-09 21:24] VITALS: BP 142/92; PULSE 103; RESP 16; TEMP 36.8; O2SAT 96
--- NOTE | 2022-08-12 14:32 | CASEMGMT ---
TC to David at the [facility] who provided the email for the homecare. He is aware that this RN SHUBHAM has not received a response. He gave a phone number to Chance to call. [phone]. TC to Chance, he took this RN CM email address and states he will send a form that is needed to complete.
--- NOTE | 2022-08-14 13:56 | CASEMGMT ---
NOMI received a phone call from Aminah at Dr Jarvis's office. Patient was in for an appointment the other day and said he is doing his own dressing changes and can't afford his antibiotic. Aminah asked if NOMI could get home health set up for patient. NOMI told her SW could look into it. Aminah asked for a return call [phone]. NOMI reviewed patient's chart and noted Meghan RENDON CM was working with [facility] to set up home health. NOMI spoke with Meghan and she will contact [facility] and Aminah at Dr Jarvis's office. [place] CARDOSO
--- NOTE | 2022-08-14 13:58 | CASEMGMT ---
Addendum entered by Meghan Coello 08/15/22 12:45: Late entry for 1400 08/15/2022. TC to Aminah at 's office after speaking with [place] MOSHER who received a call from her. No answer and no vm. Original Note: TC to Chance at the [facility], did not receive HH form in email. He states he will send again.
--- NOTE | 2022-08-15 12:46 | CASEMGMT ---
Addendum entered by Meghan Coello 08/15/22 15:40: TC to pt to make aware that the HHC as been approved by [place] (see Jeanine's note) and that they should be in touch with him next week. He also was made aware that if he is having difficulties with medication copays, [facility] that could possibly help with this. He appreciates the information. States he did get his antibiotic filled. He denies further needs. TC to Aminah at 's office, she is aware of the above as well. Addendum entered by Meghan Coello 08/15/22 14:36: Received a vm from Jenn at the [place] that a consult has been entered for the HHC. TC back to her, left message to verify if the community care team sets up the HHC or the RN CM. Received another voicemail from Sandi who states the form has been sent several times and this is needed to move forward. Emailed them back that this has not been received and to make aware of the consult entered by Jenn. Original Note: TC to Aminah at 's office to make aware that this RN CM is working on getting [facility]. Also made aware that rx assist was provided at last dc for the antibiotic but unable to be used again. She states that pt reported he may be able to afford in the next day or 2. No email from the [facility]. TC to director who will reach out to IT to see if this is getting blocked. Email had been sent back to [place] making aware that form has not been received yet.
--- NOTE | 2022-08-15 15:37 | CASEMGMT ---
JUSTICE JALLOH Follow-up: IT at [facility] contacted regarding emails from [facility] not coming through. Per Yobany, there are not any emails coming into [facility] that he can see so this would be an issue before [facility]'s IT system. Calls placed to Chance at the [facility] to further discuss. VM left requesting a return call. Call placed to [facility]. Spoke with Gail who referred this RN CM to NOMI Stanley who referred this RN CM to JUSTICE Barajas with pt's PCP Dr. Cornell. JUSTICE Barajas states she has forwarded a consult to the [place] community care team who facilitates setting up the skilled HH services with an in-network provider. Per JUSTICE Barajas, an additional form is not needed since she submitted the consult order from the PCP's office. JUSTICE Christianson CM updated on the above. Darlin Powers RN CM
--- NOTE | 2022-08-19 09:11 | CASEMGMT ---
JUSTICE JALLOH Follow-up: Call placed to patient. Pt states that he is having his first home health visit this afternoon at 1400. Pt is unable to recall the name of the [facility] agency. Pt states his pain is tolerable and he is doing alright. Darlin Powers RN CM
== END 2022-08-09 21:25 | disposition home or self-care (01) | DRG 330 ==
LOC: ED 16:22 → MS3 17:01
PROVIDERS: Internal Medicine; Surgery; Admitting Provider Internal Medicine; Emergency Provider Emergency Medicine; Visit Provider Internal Medicine
PROC: 0DTA0ZZ Resection of Jejunum, Open Approach (ICD-10-PCS; CPT 44202; principal; 2022-08-01 11:40)
DX: K56.51 Intestinal adhesions [bands], with partial obstruction (principal); K91.89 Other postprocedural complications and disorders of digestive system; N17.9 Acute kidney failure, unspecified; K91.71 Accidental puncture and laceration of a digestive system organ or structure during a digestive system procedure; F14.11 Cocaine abuse, in remission; K56.7 Ileus, unspecified; E03.9 Hypothyroidism, unspecified; E86.0 Dehydration; F17.210 Nicotine dependence, cigarettes, uncomplicated; G43.909 Migraine, unspecified, not intractable, without status migrainosus; E83.42 Hypomagnesemia; F10.10 Alcohol abuse, uncomplicated; I25.2 Old myocardial infarction; K59.03 Drug induced constipation; Z91.14 Patient's other noncompliance with medication regimen; T40.605A Adverse effect of unspecified narcotics, initial encounter; Z53.31 Laparoscopic surgical procedure converted to open procedure; Y92.234 Operating room of hospital as the place of occurrence of the external cause; N40.0 Benign prostatic hyperplasia without lower urinary tract symptoms; Z79.82 Long term (current) use of aspirin; Z79.890 Hormone replacement therapy; Z79.899 Other long term (current) drug therapy
CPT/HCPCS: 36415; 74018; 74177; 74250; 80048; 80053; 83735; 84100; 84439; 84443; 85025; 88305; 88307; 94668; 97802; 97803; 99285; 99406; J7030; J7050; J7120; Q9967; A4216; J0330; J2405

== ENCOUNTER 2023-09-04 14:14 | Emergency (ER) | payer OTHER, SELFPAY ==
[2023-09-04 14:17] VITALS: BP 137/91; PULSE 96; RESP 16; TEMP 36.1; O2SAT 97; BMI 23.7
[2023-09-04] MEDS: Ondansetron ODT 4 MG Tablet PO (16:10)
[2023-09-04] MEDS: Morphine 4 MG/ML Syringe IM (16:10)
[2023-09-04] MEDS: Ketorolac 30 MG/ML Syringe IM (16:10)
--- NOTE | 2023-09-04 16:11 | EDS_ITS ---
HPI <ALAN Pascual - Last Filed: 09/04/23 17:18> History of Present Illness Chief Complaint: Back Narrative Narrative: Patient is a 63-year-old male with history of hypothyroidism, chest pain who presents to the emergency department for lower back pain. Patient states this morning, he was picking up after his puppies, he felt a twinge in his lower back. He then had lunch, took a nap and was since he woke up from the nap he has significant pain to the lower back. He denies any radiation to his legs, denies any bowel or bladder incontinence. Patient denies any history of IV drug abuse. Denies any fever chills nausea or vomiting. PFSH <ALAN Pascual - Last Filed: 09/04/23 17:18> [facility] Medical History Acute dehydration Angina at rest Anxiety Back pain Chest pain Depression Elevated serum creatinine Hearing loss, left History of intestinal obstruction (~1967) Hypothyroidism Migraine headache Myocardial infarct Palpitations Partial obstruction of small intestine Shortness of breath on exertion Small bowel obstruction due to adhesions Smoker Wears glasses Home Medications aspirin 81 mg chewable tablet 81 mg PO DAILY 12/01/17 [History Last Taken Unknown] ibuprofen 800 mg tablet 800 mg PO Q8H PRN PRN Pain #20 tabs 12/01/17 [Rx Last T aken Unknown] levothyroxine 100 mcg tablet 100 mcg PO DAILY 12/01/17 [History Last Taken Unknown] tamsulosin 0.4 mg capsule (Flomax) 0.4 mg PO DAILY 07/31/22 [History Last Taken Unknown] cyclobenzaprine 10 mg tablet 10 mg PO TID PRN Muscle Spasm #20 TABLETS 09/04/23 [Rx Last Taken Unknown] naproxen 500 mg tablet (Naprosyn) 500 mg PO BID PRN pain #20 tabs 09/04/23 [Rx Last Taken Unknown] oxycodone-acetaminophen 5 mg-325 mg tablet (Percocet) 1 tab PO Q8H PRN pain 3 days #10 tabs 09/04/23 [Rx Last Taken Unknown] Allergy/AdvReac Type Severity Reaction Status Date / Time No Known Allergies Allergy Verified 09/04/23 14:18 Family History Father No problems noted. Surgical History History of abdominal surgery Hx of resection of small bowel (~1968) S/P small bowel resection Social History household members: none Smoking Status: Current every day smoker tobacco type: cigarettes substance use type: does not use ROS <ALAN Pascual - Last Filed: 09/04/23 17:18> ROS ED ROS Narrative Constitutional: Negative for fever, chills, weight loss, weakness Eyes: Negative for vision loss, vision change, double vision ENT: Negative for any sore throat, ear pain, congestion Cardiovascular: Negative for any chest pain, tightness, palpitations Respiratory: Negative for any cough, sputum production, hemoptysis, dyspnea, dyspnea on exertion, orthopnea Gastrointestinal: Negative for any abdominal pain, nausea, vomiting, diarrhea, constipation, blood in stool, blood in vomit : Negative for any urinary frequency, dysuria, retention, blood in urine Muscle skeletal: Negative for any neck pain. Positive for lower back pain Neurological: Negative for any headache, syncope, dizziness Skin: Negative for any rashes, itching, abrasions, lacerations Psychiatric: Negative for any depression, anxiety, stress, suicidal ideation, homicidal ideation Hematologic: Negative for any excessive bruising, easy bleeding EXAM <ALAN Pascual - Last Filed: 09/04/23 17:18> Physical Exam Narrative Exam Narrative: Vital signs reviewed. HEET: Head normocephalic atraumatic, TMs clear bilaterally. Posterior pharynx is clear, moist mucous membranes. Nares clear bilaterally. Neck: Supple with no lymphadenopathy or tenderness. No signs of meningismus. Cardiac: Regular rate and rhythm no murmurs gallops or rubs, equal peripheral pulses bilaterally. Respiratory: Lungs clear to auscultation bilaterally. No chest tenderness. Abdomen: Soft, nontender, nondistended. No abdominal bruit or pulsatile masses. No hepatosplenomegaly Extremities: No peripheral edema, no signs of gross trauma or deformity. Active full range of motion of all extremities. Equal strength bilateral lower extremities. Neuro: Cranial nerves II through XII intact, no focal neurological deficits. I was able to have the patient walk, patient has worsening pain standing erect. Skin: Clean dry and intact with no rash, purpura, petechiae, vesicles or pustules. Backs/flank: No CVA tenderness, no midline spinal tenderness, no deformity. Patient has pain to this paraspinal area to both the right and left lower lumbar spine. Psych: Normal mood and affect. No SI, HI or acute psychosis. Const Vital Signs: 09/04/23 14:17 09/04/23 17:23 Temperature 97 F L 98 F Temperature Source Temporal Pulse Rate 96 96 Respiratory Rate 16 18 Blood Pressure 137/91 H 145/95 H Blood Pressure Mean 106 111 Pulse Ox 97 99 Oxygen Delivery Method Room Air <Dr. Desmond Stevens DO - Last Filed: 09/04/23 17:32> Physical Exam Const Vital Signs: 09/04/23 14:17 09/04/23 17:23 Temperature 97 F L 98 F Temperature Source Temporal Pulse Rate 96 96 Respiratory Rate 16 18 Blood Pressure 137/91 H 145/95 H Blood Pressure Mean 106 111 Pulse Ox 97 99 Oxygen Delivery Method Room Air [facility] <ALAN Pascual - Last Filed: 09/04/23 17:18> [facility] Treatment and Re-Evaluation :: Differential diagnosis includes however is not limited to: Lumbar strain, muscle spasm, cauda equina, spinal abscess Patient appears to be in mild discomfort secondary to lower back pain. Vital signs are stable, patient appears nontoxic. Patient presents to the emergency department with lower back pain that started today. I do believe this is secondary to the patient bending over, and is having lower back pain. Patient will be given IM Toradol, IM morphine, oral Zofran. Patient be reevaluated. Physical examination yielded no red flag signs. Patient on reevaluation had mild improvement. Patient will be diagnosed with lumbar strain. Patient replaced on naproxen, Flexeril as well as a couple days of pain medicine, Percocet. He is instructed to return for any worsening symptoms. All questions were answered, patient is stable for discharge. P atient was given strict return precaution to return for any worsening back pain, weakness to his lower extremities, bowel or bladder incontinence. Patient's visit examination yielded no red flag signs today. Patient stable for discharge. <Dr. Desmond Stevens DO - Last Filed: 09/04/23 17:32> [facility] History & Record Review Discussion w/independent historian: Patient Treatment and Re-Evaluation :: Differential diagnosis includes however is not limited to: Lumbar strain, muscle spasm, cauda equina, spinal abscess Patient appears to be in mild discomfort secondary to lower back pain. Vital signs are stable, patient appears nontoxic. Patient presents to the emergency department with lower back pain that started today. I do believe this is secondary to the patient bending over, and is having lower back pain. Patient w ill be given IM Toradol, IM morphine, oral Zofran. Patient be reevaluated. Physical examination yielded no red flag signs. Patient on reevaluation had mild improvement. Patient will be diagnosed with lumbar strain. Patient replaced on naproxen, Flexeril as well as a couple days of pain medicine, Percocet. He is instructed to return for any worsening symptoms. All questions were answered, patient is stable for discharge. Patient was given strict return precaution to return for any worsening back pain, weakness to his lower extremities, bowel or bladder incontinence. Patient's visit examination yielded no red flag signs today. Patient stable for discharge. I have personally performed a face to face assessment of the patient and have reviewed the LJ Note. I performed a substantive portion of the visit including all aspects of the following. My [place] findings include: History is 63-year-old male states that he squatted down to potato picker some puppy pads and when he stood up felt some discomfort in his low back. He then ordered some pizza took a nap when he woke up had increased pain in the low back it was hard for him to get up. He denies any radicular symptoms. He has no red flag history (no immunocompromise state, no known active cancers, no known trauma, no IVDU, no rashes) Exam is patient with tenderness palpation over the paraspinal musculature loop lower back. Normal patellar and Achilles DTR. No sensory or motor deficits. He has painful slow deliberate range of motion. Medical Decison Making I believe this to be musculoskeletal/muscle spasm in nature. I would recommend heat anti-inflammatories muscle relaxants and pain medication. I informed the patient that he will most likely have pain/discomfort for several days before it starts to improve. I would encourage rest. He was advised that if he is not improving he should follow-up with primary care. Discharge Plan Triage Chief Complaint: Back ED Midlevel Provider: Kapil Pham ED Provider: Desmond Stevens Dx/Rx/DC Orders Clinical Impression: Acute lumbar myofascial strain Instructions: ED Back Sprain/Strain Prescriptions: New naproxen [Naprosyn] 500 mg tablet 500 mg PO BID PRN (Reason: pain) Qty: 20 0RF cyclobenzaprine 10 mg tablet 10 mg PO TID PRN (Reason: Muscle Spasm) Qty: 20 0RF oxycodone-acetaminophen [Percocet] 5-325 mg tablet 1 tab PO Q8H PRN (Reason: pain) 3 Days Qty: 10 0RF No Action levothyroxine 100 MCG tablet 100 mcg PO DAILY aspirin 81 MG tablet,chewable 81 mg PO DAILY ibuprofen 800 MG tablet 800 mg PO Q8H PRN PRN (Reason: Pain) Qty: 20 0RF tamsulosin [Flomax] 0.4 mg Capsule 0.4 mg PO DAILY [facility] [Primary Care Provider] - Activity Restrictions/Additional Instructions: Please follow-up outpatient. Please return for any worsening symptoms. Disposition Disposition: Home, Self Care Discharge Date/Time: 09/04/23 17:25
[2023-09-04 17:23] VITALS: BP 145/95; PULSE 96; RESP 18; TEMP 36.6; O2SAT 99
== END 2023-09-04 17:25 | disposition home or self-care (01) ==
PROVIDERS: Emergency Provider Emergency Medicine; Visit Provider Emergency Medicine
DX: S39.012A Strain of muscle, fascia and tendon of lower back, initial encounter (principal); X50.1XXA Overexertion from prolonged static or awkward postures, initial encounter; E03.9 Hypothyroidism, unspecified; F17.210 Nicotine dependence, cigarettes, uncomplicated; Z79.82 Long term (current) use of aspirin; Z79.890 Hormone replacement therapy; Z79.899 Other long term (current) drug therapy
CPT/HCPCS: 96372; 99282